=== PATIENT | male | born 1945 | race Caucasian/White ===

== ENCOUNTER 2017-02-21 02:00 | Inpatient (IN) | payer OTHER, MEDICARE ==
[~2017-02-21] VITALS: Ht 177.8 cm; Wt 68.0 kg
[~2017-02-21 02:00] MED LIST: ASPIRIN EC81 M1 PO; BENAZEPRIL HCL20 MG PO; CELEBREX200 M1 PO; ELIQUIS5 M1 PO; FLUOXETINE HCL20 M2 PO; FLUOXETINE HCL60 MG PO; GABAPENTIN300 M2 PO; MAGNESIUM OXID400 M1 PO; OXYCODONE HCL5 M1 PO; PRAVASTATIN SOD40 M2 PO; TAMSULOSIN HCL0.4 M1 PO; TRAZODONE HCL50 M1 PO; ZOFRAN ODT4 M1 SL
--- NOTE | 2017-02-21 12:16 | RADIOLOGY REPORT ---
EXAMINATION: XR LUMBAR SPINE CLINICAL INFORMATION: 71-year-old male for L4 bilaterally, L3 hemilaminectomy. COMPARISON: 12/15/2015. TECHNIQUE: Crosstable single lateral radiograph of the lumbosacral spine. FINDINGS: There are 3 radiopaque markers identified, though one in the middle is projecting at the level of L4-L5 disc space while the superior one is projecting at the level of just above the spinous process of L4 and the inferior one is projecting at the level of L5 spinous process. IMPRESSION: Crosstable single lateral radiograph showing radiopaque markers as described above.
--- NOTE | 2017-02-21 13:54 | Admission Core Measures ---
Admission Meds I reviewed the following Meds: Current Medications Sig/Moriah Start time Last Medication Dose Stop Time Status Admin Cefazolin Sodium 1,000 MG ONCE 02/21 0000 NR (Kefzol-Ancef Inj) 02/21 2359 Fluoxetine HCl 60 MG DAILY 02/22 1000 AC (Prozac) Gabapentin 300 MG AT BEDTIME 02/21 2200 AC (Neurontin) Lisinopril 20 MG DAILY 02/22 1000 AC (Prinivil) Magnesium Oxide 400 MG BID 02/21 2200 AC (Mag-Ox) Pravastatin Sodium 40 MG 1700 02/21 1700 AC (Pravachol) Tamsulosin HCl 0.4 MG DAILY 02/22 1000 AC (Flomax) Trazodone HCl 50 MG QPM 02/210 UNVr (Desyrel) Acute Coronary Syndrome Inclusion Criteria ACS Diagnosis No Inpatient Core Measures LDL Reminder: If No, please order W/I first 24hr of stay Congestive Heart Failure Inclusion Criteria CHF Diagnosis No Cerebrovascular accident Inclusion Criteria CVA/TIA Diagnosis No Inpatient Core Measures Bedside Swallow Eval Reminder: If BSE failed, place ST order Antithrombotic Reminder: Order Antithrombotic Medication by end of day 2 Antithrombotic Reminder: Document Reason Antithrombotic Not ordered by end of day 2 AFIB/Flutter Reminder: If Present, add to problem list AFIB/Flutter Reminder: Order Anticoag Medication for pts with AFIB/Flutter Atherosclerosis Reminder: If Present, add to problem list LDL Reminder: If No, please order W/I first 24hr of stay PT Order Reminder: If No, please order Venous thromboembolism Inpatient Core Measures VTE Risk Factors: Age > 40, Surgery No [facility] VTE prophylaxis d/t No contraindications No VTE Pharm Prophylaxis d/t Surgical contraindication Inclusion Criteria - Per Current guidelines, there needs to be overlap - treatment for the first 5 days of Warfarin therapy. - Parenteral Anticoagulation (IV or SC) needs to be - given along with Warfarin therapy. VTE Diagnosis No VTE Type NONE VTE Confirmed by (Test) NONE Problem List As ranked by this Provider includes Assessment & Plan 1. Spinal stenosis, lumbar region, with neurogenic claudication HOME MEDS Home Med List Aspirin (Ecotrin*) 81 MG TABLET. 1 TAB PO DAILY HEART HEALTH (Reported) Benazepril HCl 20 MG TABLET 1 TAB PO DAILY HIGH BLOOD PRESSURE (Reported) Fluoxetine HCl 60 MG TABLET 1 TAB PO DAILY MENTAL HEALTH (Reported) Gabapentin 300 MG CAPSULE 1 CAP PO NIGHTLY PAIN (Reported) Magnesium Oxide 400 MG TABLET 1 TAB PO BID LOW MAGNESIUM Oxycodone HCl 5 MG TABLET 1 TAB PO 4XDP PAIN (Reported) Pravastatin Sodium 40 MG TABLET 1 TAB PO DAILY HIGH CHOLESTROL (Reported) Tamsulosin HCl 0.4 MG CAP.ER.24H 1 CAP PO DAILY BPH (Reported) Trazodone HCl 50 MG TABLET 1 TAB PO QPM Mental Health (Reported)
--- NOTE | 2017-02-21 15:19 | RADIOLOGY REPORT ---
EXAMINATION: XR LUMBAR SPINE CLINICAL INFORMATION: L4 lumbar, bilateral, L3 hemilaminectomy. Bilateral L3-L4, L4-L5 posterior fusion. COMPARISON: None TECHNIQUE: Single crosstable lateral radiograph of the lumbosacral spine was obtained. FINDINGS: There is a radiopaque marker seen projecting at the level of the spinous process of L5 and L3 vertebral body. Multilevel degenerative spondylosis-related changes are noted in the spine. IMPRESSION: Radiopaque marker seen projecting at the level of the spinous process of L3 and L5 vertebral bodies.
[2017-02-21 16:30] VITALS: BP 148/80
[2017-02-21 18:30] VITALS: BP 150/80
[2017-02-21 20:36] VITALS: BP 118/71
--- NOTE | 2017-02-21 20:51 | PN- Orthopedic ---
Subjective Subjective: POSTOP CHECK s/p PLIF L3/4, L4/5 some back pain, denies leg pain, no n/v/cp/sob, chelsey solid diet, +uo via scherer Objective Vital Signs and I&Os Vital Signs Date Time Temp Pulse Resp B/P B/P Pulse O2 O2 Flow FiO2 Mean Ox Delivery Rate 02/22 2036 98.2 63 20 118/71 98 Room Air 02/21 1830 97.6 62 20 150/80 99 Room Air 02/21 1630 97.5 52 20 148/80 100 Nasal 2.0L Cannula 02/21 1630 100 Nasal 2.0L Cannula JP1 out: 100 JP2 out: 87 both serosang, tubing stripped/patent Physical Exam: GEN: NAD CARD: s1s2 RRR PULM: CTAB ABD: soft nt nd, ostomy fxning BACK/INCISION/EXT: dressing c/d/i, ttp at incision, no eccymosis/erythema noted, jpx2 serosang drainage in bulb, calves soft nt bl, +dorsi/plantar flexion bl, gross sensate intact/equal bl, +DP/PT pulses bl Assessment/Plan Assessment/Plan POD0 s/p PLIF L3/4, 5/6, postop pain, otherwise stable. PLAN: PRN pain meds ATC iv tylenol cont gluten free diet am labs oob as tolerated ?dvt ppx Core Measures/Miscellaneous Venous Thromboembolism VTE Risk Factors: Age > 40, Surgery VTE Contraindications: No Contraindications VTE Diagnosis: No VTE Type: NONE VTE Confirmed by (Test): NONE Beta Yasmeen Is Beta Yasmeen a Home Med? No Antibiotics Is Patient on Antibiotics? Yes
[2017-02-21 22:34] VITALS: BP 111/70
[2017-02-22 02:30] VITALS: BP 114/66
[2017-02-22 07:56] VITALS: BP 120/70
--- NOTE | 2017-02-22 08:14 | PN- Orthopedic ---
Subjective Subjective: POD#1 S/P PLIF SITTING UP IN BED EATING BREAKFAST NO MAJOR EVENTS OVERNIGHT DENIES CP, SOB, NO N+V WITH DIET Objective Vital Signs and I&Os Vital Signs Date Time Temp Pulse Resp B/P B/P Pulse O2 O2 Flow FiO2 Mean Ox Delivery Rate 02/22 0756 98.1 61 20 120/70 99 Room Air 02/22 0230 98.1 63 20 114/66 98 Room Air 02/21 2234 98.3 63 20 111/70 98 Room Air 02/21 2036 98.2 63 20 118/71 98 Room Air 02/21 1830 97.6 62 20 150/80 99 Room Air 02/21 1630 97.5 52 20 148/80 100 Nasal 2.0L Cannula 02/21 1630 100 Nasal 2.0L Cannula Intake & Output 02/22 1600 02/22 0800 02/22 0000 02/21 1600 02/21 0800 02/21 0000 Intake Total 550 Output Total 2100 1587 Balance -2100 -1037 Intake, Oral 550 Output, 287 Drainage Output, Urine 2100 1300 Patient 150 lb Weight Physical Exam: CV: RRR LUNGS: CLEAR ABD: SOFT, +BS EXT: DISTAL CMS GROSSLY INTACT DRSG DRY BREANNE'S: SANGUINOUS OUTPUT RUSSELL: CLEAR URINE Assessment/Plan Assessment/Plan ORTHO STABLE PLAN OOB TODAY D/C RUSSELL WEAN IV NARC'S CONT IV ABX'S UNTIL DRAINS PULLED HOME D/C PLAN Core Measures/Miscellaneous Venous Thromboembolism VTE Risk Factors: Age > 40, Surgery VTE Contraindications: No Contraindications VTE Diagnosis: No VTE Type: NONE VTE Confirmed by (Test): NONE Beta Yasmeen Is Beta Yasmeen a Home Med? No Antibiotics Is Patient on Antibiotics? Yes
[2017-02-22 08:49] LABS: ABSOLUTE BASOPHIL COUNT 0 /CUMM (0.0-0.2); ABSOLUTE EOSINOPHIL COUNT 0 /CUMM (0.0-0.7); ABSOLUTE GRANULOCYTE CT 8.8 /CUMM (1.4-6.5); ABSOLUTE LYMPH COUNT 1.2 /CUMM (1.2-3.4); ABSOLUTE MONOCYTE COUNT 1.1 /CUMM (0.10-0.60); BASOPHIL % 0.3 % (0.0-2.0); EOSINOPHIL % 0.3 % (0-5); GRANULOCYTE % 78.8 % (42.2-75.2); HEMATOCRIT 32.8 % (42-52); MEAN CORPUSCULAR HGB 30.6 PG (27.0-31.0); MEAN CORPUSCULAR HGB CONC 33.7 G/DL (33.0-37.0); MEAN PLATELET VOLUME 8.1 FL (7.4-10.4); PLATELET COUNT 185 /CUMM (130-400); RBC DISTRIBUTION WIDTH 13.9 % (11.5-14.5); RED BLOOD CELL CT 3.61 /CUMM (4.70-6.10); WHITE BLOOD CELL COUNT 11.2 /CUMM (4.8-10.8)
[2017-02-22 10:29] VITALS: BP 120/85
[2017-02-22 14:34] VITALS: BP 120/68
--- NOTE | 2017-02-22 16:31 | Operative Report ---
Operative/Inv Procedure Report Surgery Date: 02/21/17 Name of Procedure: 1) L4 Decompressive Laminectomy, L4-L5 Bilateral Partial Medial Facetectomies And Medial Exit Zone Expanding Foraminotomies (Blechner/Ron, PIG FURNACE OPERATOR-BC) 2) L3 Decompressive Laminectomy, L3-L4 Bilateral Partial Medial Facetectomies And Medial Exit Zone Expanding Foraminotomies (Blechner/Ron, PIG FURNACE OPERATOR-BC) 3) L4-L5 Posterobilateral Intertransverse Process Uninstrumented Fusion ( Blechner/Ron, PIG FURNACE OPERATOR-BC) 4) L3-L4 Posterobilateral Intertransverse Process Uninstrumented Fusion ( Blechner/Ron, PIG FURNACE OPERATOR-BC) 5) Preparation And Implantation Of L3-L5 Posterobilateral Intertransverse Process Nonstructural Allograft Subtitute Osteopromotive Material (Rafianer) 6) [place], Preparation And Implantation Of L3-L5 Posterobilateral Intertransverse Process Morselized Local Autograft (Nini) Pre-Operative Diagnosis: Primary Surgically Treated Diagnoses: 1) L4-L5 And L3-L4 Lumbar Intervertebral Disc Disorder With Left Lumbar Radiculopathy 2) L4-L5 And L3-L4 Lumbar Spondylosis With Left Lumbar Radiculopathy 3) L4-L5 And L3-L4 Multizone Lumbar Spinal Stenosis 4) Left Lower Extremity Distal (Extensor Hallucis Longus And Anterior Tibialis) Subjective And Objective Motor Neurological Deficit 5) Left Lower Extremity Mild Foot Drop 6) Left Lower Extremity Mild Toe Drop 7) L5 Left Lower Extremity Lumbar Distribution Positional And Claudicating Radiculopathy (Pain, Motor And Sensory Deficit, Dyscoordination And Ambulatory Dysfunction) 8) Right Distal Lower Extremity L5 And S1 Distribution Hypoesthetic Disturbance Of Skin Sensation 9) L4-L5 And L3-L4 Displacement Of Degenerative Lumbar Intervertebral Discs 10) L4-L5 And L3-L4 Degeneration Of Lumbar Intervertebral Discs 11) L4-L5 And L3-L4 Lumbar Spondylosis 12) L4-L5 Subtle Degenerative Low Grade I Lumbar Spondylolisthesis 13) L3-L4 Degenerative Low Grade I Lumbar Retrolisthesis 14) L4-L5 And L3-L4 Spinal Segmental Instability 15) 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) Post-Operative Diagnosis: Same as preoperative diagnosis list with the addition of: Intraoperative And Postoperative Diagnoses Relevant To Postoperative Care: 1) L3-L4 And L4-L5 Potential Increased Postoperative (Post-Decompression And Pre-Arthrodesis) Microinstability Requiring Acute Postoperative Activity Limitation And Circumferential Lumbar Compression Orthosis Use For Optimized Symptom Control, Stabilization, Fusion, Postoperative Function And Overall Outcome 2) Expected Acute Postoperative Lumbar Region Pain Requiring Postoperative Intravenous Narcotic Analgesic Pain Medication And Inpatient Nursing Observation Following Standard And Uncomplicated But Extensive Multilevel Lumbar Decompression And Uninstrumented Fusion 3) Expected Acute Postoperative Lumbar Region Muscular Spasm Requiring Postoperative Muscle Relaxant Medication And Inpatient Nursing Observation Following Standard And Uncomplicated But Extensive Multilevel Lumbar Decompression And Uninstrumented Fusion 4) L3 And L4 Acute Lumbar Posterior And Posterobilateral Osseous Decompression Postprocedural Status 5) L3-L4 And L4-L5 Lumbar Spine Early Postprocedural Uninstrumented Arthrodesis Status 6) Physiologically Limited Bone Healing Potential (Due To Multiple Medical Conditions And Medications) Relative To Extent Of Multilevel Arthrodesis Performed Indicating Use Of An External Pulsed Electromagnetic Field Stimulation Device To Optimize Osseous Fusion Formation Estimated Blood Loss: 800 cc, 600 cc cell saver return Surgeon/Vehicle Service Agent: SLIME TERRAZAS MD - Primary Admitting Orthopaedic Spine Surgeon Surgical Providers: Slime Terrazas M.D. - Orthopaedic Spine Surgeon Cesia Augustin PA-C - Laboratory Manager Anesthesia: general endotracheal tube Monitors: Standard general anesthesia and other perioperative monitoring was performed per anesthesia protocols. Standard intraoperative EMG and SSEP electrophysiological monitoring (NeuroAlert ) Refer to anesthesia and intraoperative electrophysiological monitoring records for details. IV Fluids: Standard anesthesia fluid management was performed without requirement for additional or emergent fluid resuscitation. Refer to anesthesia and cell saver records for details. Implants: Implants Placed: None Graft Placed: Morselized Locally Harvested Autograft Autograft Locally Harvested From: L3 And L4 Spinous Process Resections And Laminectomies L3-L4 And L4-L5 Partial Medial Facetectomies Allograft Substitute Osteopromotive Material Haptik Holliday DBF (6 cc) (Autograft And Allograft Substitute Graft Distributed Equally Bilaterally And Evenly From L3 To L5) Urine Output: Refer to anesthesia records for details. Drains: Large bore subfascial BREANNE drains x 2 to medium bulb reservoir suction ( fenestrated portions of drain tubes placed in each posterolateral intertransverse space (lateral gutter) with solid (unfenestrated) portion passed through deep muscle, fascia, subcutaneous tissue, and skin of bilateral caudal aspect of surgical site torres without suture fixation) Specimens: None Complications: None Condition: Initial Preoperative Condition: The patients condition was stable to the operating room without vital sign, hemodynamic, cardiopulmonary or other organ system abnormality and without new neurovascular or musculoskeletal functional deficit compared to stable baseline of preoperative distal bilateral lower extremity sensory and mild motor deficit noted on orthopaedic spine surgical office as well as admission history and physical evaluations. The patient was cleared preoperatively as optimized for surgery by his primary care physician and all requested consulting specialty services prior to admission. There were no subjective reports or objective findings to suggest any significant adverse changes in the patient's spine, neuromuscular or complex medical conditions between the clearance admission history & physical evaluations and the immediate preoperative assessment. Intraoperative Condition: The patient was stable throughout the procedure without vital sign, cardiopulmonary or other monitoring changes, lability, instability or abnormality. The patient's initial baseline neurophysiological monitoring signals (recorded shortly after general anesthetic induction and prior to incision) were within normal range of amplitude and latency with no electrophysiologic manifestations of compression or suggestion of occult deficit. By the end of the procedure it became evident that, although these initial baseline recording were within the normal range, there was some baseline preoperative electrophysiologic suppression since the signals improved somewhat shortly following decompression. This was consistent with intraoperative findings of hyperactive neuromotor response associated with even gentle neural contact and retraction during decompression which decreased significantly once the neural elements were fully decompressed. Neural element manipulation and associated neuromotor firing was minimized as much as possible during the procedure and was not associated with even temporary reported electrophysiological changes at any time during the procedure. Final Postoperative Condition: The patient was extubated and stable to the recovery room with no new deficit or adverse change compared to stable baseline preoperative neurological and musculoskeletal assessment (with moderate sensory and motor deficits noted above ) based on limited evaluation during initial recovery from anesthesia. The patient demonstrated grossly normal spontaneous motion initially as well as later normal motion and function to command in both upper and distal lower extremities once fully awake upon early recovery from anesthesia. On final postoperative neurological assessment the patient reported subjective partial improvement compared to his preoperative sensory and motor deficits and this improvement was confirmed on objective sensory evaluation and manual motor testing with symmetrical and incomplete but noticeable return toward normal function even at this early timepoint. There was no swelling, erythema, tenderness, pain with either active or passive motion or any other symptom or finding to suggest a concerning process involving the superficial or deep cutaneous, subcutaneous, muscular, vascular or other tissues related to the immobilization or localized pressure of prolonged prone positioning required for surgery. 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 who presents today for L4 decompressive laminectomy, bilateral L3 decompressive inferior hemilaminotomies, bilateral L3-L4 and L4-L5 partial medial facetectomies and foraminotomies for central canal, lateral recess and foraminal decompression followed by L3-L5 posterobilateral uninstrumented fusion to address bilaterally symmetrical lower extremity radiating pain, distal numbness and fatigue weakness with claudicating ambulatory worsening of symptoms , mild gait abnormality and additional functional deficits secondary to severe L4-L5 and moderate to severe L3-L4 spinal canal, lateral recess and right greater than left foraminal stenosis causing significant traversing and exiting neural element compression. This condition has been progressively worsening over several years consistent with the typical natural history of osseous spinal stenosis, but has become functionally limiting over the last 6 months without specific or significant inciting or exacerbating event, injury or change in activity. He denies any history of severe, incapacitating or even significant back pain and the moderate history that he does report of activity related back pain is consistent with axial claudication from his stenosis likely combined with a component from the additional findings of lower lumbar degenerative changes on radiologic studies correlating with age. His symptoms and condition have steadily progressed and have now reached an unacceptable level associated with significant activity and functional limitation despite good compliance with a conservative management program to the best of his ability and tolerance. His clinical findings and progression are consistent with the radiologic findings of severe stenosis causing significant neural compression which is unlikely to improve with further conservative care. Injections are unlikely to give him long-term imporvement at this point and the associated risk outweighs the likely minimal and temporary benefit. He has therefore, very reasonably, chosen to proceed with surgical decompression. The multilevel mild instability ( spondylolisthesis at L4-L5 and retrolisthesis at L3-L4) significantly increases his risk for recurrence and so fusion has been recommended. The lack of gross instability makes him a reasonable candidate for uninstrumented fusion which was the option ultimately selected by the patient. The patient's preoperative lumbar spine radiologic workup (including static and dynamic radiographs as well as MRI scan) showed the above noted severe two level. multizone stenosis secondary to spondylosis and hypertrophic facet arthropathy consistent with the patient's current presenting clinical condition including symptoms (claudicating radiating pain and sensory loss), physical examination findings (distal lower extremity subtle motor fatigue weakness) as well as functional deficits mostly involving severe ambulatory distance limitation. The radiologic findings are also consistent with the persistence of his condition and his failure to improve with conservative care. His preoperative laboratory studies were unremarkable. The patient has sufficiently severe and progressively worsening clinical condition (symptoms and exam findings listed above) related to this condition, has failed a comprehensive conservative management program despite excellent compliance, has close correlation between clinical presentation and preoperative studies, is medically optimized for surgical intervention, understands and accepts the limitations, uncertainties and risk of surgery, appears to have appropriate goals for surgical outcome, and is more likely to achieve those goals with the planned surgical procedure than with other options for treatment thus making him a reasonable candidate for surgical intervention. The patient has a significant remote past medical history of low rectal adenocarcinoma resected in 1997. His resection was not ammenable to reanastamosis. He has done well with a permanent colostomy since surgery without complications or evidence of recurrence. He was treated with radiation but his portal was mostly low pelvic and there is no suggestion of significant exposure or radiation scarring to the intended lower lumbar operative area although no documentation of exact exposure landmarks or dose is available for review. It is certainly possible that some (possibly significant) component of his neurological symptomatology (particularly sensory deficit) is neuropathic related to sacral radiation exposure and the patient understands that any such component is unlikely to respond even to optimal surgical decompression and could potentially worsen. 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 He has a significant primary past surgical history of low large bowel resection and permanent colostomy (1997) which is detailed above. He also has a positive secondary past surgical history of bilateral cataract surgery (2010) and right total hip arthroplasty (09/09/2011). He denies any complications, adverse events or outcomes associated with any of the above procedures or associated anesthesia care and in fact recovered fully from those surgeries without functional limitations. His current and active medications include Benazepril, Fluoxetine, Trazadone, Pravastatin, Ranitidine, Omeprazole, Ondansetron, Tamsulosin and Hydrocortisone Ear Drops for his above listed medical conditions. He takes Celebrex, Gabapentin and Oxycodone primarily for his spinal condition. He takes Eliquis for atrial fibrillation. This medication has been held since 5 days prior to surgery. He reports no adverse effects from any of these medications or supplements and reports no recent change in product or dose. He denies any history of anaphylactic, anaphylactoid, allergic or non-allergic reactions or sensitivities to medications, foods or skin contact environmental allergens. He is a non-smoker and denies significant alcohol intake or other social risk factors. The above clinical information was reviewed throughout the hospital admission and preoperative confirmation process but did not alter surgical recommendations, treatment plans or perioperative management in this case. Treatment options were discussed in detail directly with the patient. After careful and appropriate consideration he elected to proceed with the planned operative procedure of L4 decompressive laminectomy, bilateral L3 decompressive inferior hemilaminotomies, bilateral L3-L4 and L4-L5 partial medial facetectomies and foraminotomies for central canal, lateral recess and foraminal decompression followed by L3-L5 posterobilateral uninstrumented fusion. He also consented to any additional indicated procedure based on intraoperative findings. Arrangements for hospital admission, surgery and perioperative care were made through Dr. Terrazas's office. In addition to the general risks of all surgical procedures (bleeding, infection, anesthesia and other general risks), specific risks of the planned procedure were reviewed with the patient including but not limited to tissue injury or exacerbation of prior injury (spinal cord, nerve root, peripheral nerve, meningeal, blood vessel, bone, disk, joint, muscle, tendon, ligament or other tissue injury), meningeal tear, spinal fluid leak, fracture of spinal elements, worsening of spinal alignment, abnormal (hypertrophic, heterotopic or ectopic) bone or scar formation, new or persistent-exacerbated symptoms (pain, dysesthesias, paresthesias, headaches), development of new or worsening of preexisting medical conditions or complications (arthritis, blood clots, cardiac events, stroke, acute organ failure of any organ, other medical conditions potentially worsened by trauma, surgery, anesthesia or immobility), inability to complete the procedure as planned, and need for reoperation at the current or a future related site (including possible surgeries for conditions not addressed or only partially addressed by this procedure such as degenerative processes previously documented at the current and adjacent lumbar levels). Potential for partial or complete, global or regional loss of motor, sensory, coordination, ambulatory, balance, bladder, bowel or sexual function was reviewed. Remaining potential complications were reviewed in inclusive risk categories ranging through all severity levels from temporary changes to catastrophic outcomes such as complete paralysis, organ failure, disfigurement or . The patient understood and accepted that his risk was likely to be considerably above average even for this already complex and high risk procedure compared to his age, clincal and function matched cohort due to his duration, severity and recent progression of pre-operative symptoms, noticeable and progressive pre- operative subjective and objective bilateral lower extremity motor, sensory and ambulatory functional deficits, extent and multiple levels of degenerative disease and spinal neural element compression on MRI, previous radiation therapy in the adjacent sacral and palvic regions, mild multilevel instability changes, and history of multiple systemic medical conditions (including atrial fibrillation requiring anticoagulant therapy) possibly affecting perioperative care and outcome. On the other hand, his thin body habitus and low demand activity level likely mitigates some of these increased risks. He also understood and accepted that the purpose of surgery is to minimize the chance for further progression of symptoms and neurological deficit and that his current preoperative deficits may be permanent. Signed operative consent was obtained directly from the patient with good understanding of all reasonable alternatives, indications, goals, expectations, limitations, risks and benefits of the planned procedure. He consented to all phases of the procedure being performed by Dr. Terrazas with the assistance of all designated hospital and outpatient practice team members. He was cleared preoperatively as optimized for surgery by his primary care physician (Andriy Nails M.D.), all requested consulting medical subspecialists and primary surgeon office evaluation prior to admission. Preoperative arrangements were made to follow all clearance evaluation recommendations. In the preoperative evaluation area, the patient confirmed his oral intake status as NPO since midnight prior to surgery. Operative/Procedure Note Note: Preoperative Holding Area Assessment/Preparation: The patient was evaluated in the preoperative holding area prior to surgery and no clinical changes or contraindications to surgical intervention were documented compared to the preoperative office and clearance evaluations. His bilateral foot and ankle sensory and motor deficits were unchanged from clearance examinations including moderate posterior leg and plantar foot numbness and subtle extensor hallucis longus and anterior tibialis weakness ( initial full strength with rapid early fatigue). As in the office, the patient was otherwise grossly neurovascularly intact in both lower extremities to standard testing. There were no multiple, bilateral or sacral root distribution sensory, motor, reflex, coordination or ambulatory changes to suggest acute increase in neural element compression or impending cauda equina syndrome that might be associated with increased neurological intraoperative risk based on preoperative assessment. The surgical plan and site were confirmed with the patient and preoperative paperwork was finalized. The region of the intended surgical site was cleansed, prepped and marked per protocol. The primary surgeon, anesthesia care team members, and operating room staff confirmed the patient identity, surgical procedure, and operative site as well as other clinical details with the patient in an initial documented preoperative confirmation (awake time out) prior to the administration of sedation or anesthesia. Surgical Procedure: The procedure was performed by Dr. Terrazas who was present and served as the primary surgeon for all critical intraoperative and perioperative decisions and interventions. The assistance of a specialty trained document control assistant was critical for safe completion of all phases of the procedure, particularly for maintenance of clear visualization in the operative field and for protected neural element retraction. FARIDA Tuttle assisted in this capacity throughout each critical phase of the procedure. Set-Up/Positioning/Exposure - The patient was brought to the operating room in stable condition and underwent uncomplicated induction of general anesthesia, intubation, and placement of all appropriate monitors, lines and catheters without difficulty. Administration of 2 grams of IV Ancef based on patient body mass was given for surgical prophylaxis and was completed at least 30 and less than 60 minutes prior to making an incision. Corticosteroid (Decadron 8 mg IV) was recommended by anesthesia for airway management and nausea prophylaxis, approved by the surgeon , and administered shortly after intubation. The patient was positioned prone on the [facility] operating table in standard fashion for a lower lumbar decompression and uninstrumented posterobilateral fusion taking care to protect and stabilize the spine during transfer, avoid positions of nerve stretch, pad all pressure points, and support the head without any pressure on the eyes using a foam head rest and head-holding frame. The iliac crest pad on the left could not be placed in its normal position because of the patient's left lower quadrant stoma and ostomy bag. In this case, both iliac crest supports were placed lower than usual with the upper margin of the support at the iliac crest and the middle of the support at the hip joint level. Additional foam padding was added to optimize support and pressure distribution in this region. Given his small frame this adjustment still provided optimal patient positioning and support without excessive pressure concentration. The proximal thigh supports were still placed one hand breath below the iliac crest supports in optimal position. All other setup was unchanged and standard for this type of procedure. This adjusted positioning allowed the patient's stoma to be protected without any pressure and allowed his ostomy bag to hang free without pressure or obstruction in the prone position. Electrophysiological monitoring electrodes were applied per standard monitoring protocol. Monitoring was felt to be indicated in this procedure because of the significant multilevel stenosis , bilateral and claudicating symptoms as well as the bilateral physical examination findings of both motor and sensory partial deficits. The arms were abducted less than 90 degrees at the shoulders, flexed less than 90 degrees at the elbows and supported on well-padded arm-boards with additional foam padding from the axillary regions to the hands with all pressure points either fully padded or supported without any contact at all between pads. The primary surgeon, anesthesia care team, and operating room staff again documented the patient identity, surgical procedure, and operative site as well as other clinical details in a final documented confirmation (final time out) prior to beginning the procedure. Loupe magnification was used throughout the appropriate portions of the procedure. After sterile prep and drape using standard technique with DuraPrep, an incision was mapped, infiltrated with 0.5% Marcaine local anesthetic with epinephrine, and made extending longitudinally from the superior tip of the L3 spinous process to the superior tip of the L5 spinous process overlying the intended L3 and L4 operative laminar levels. Hemostasis was achieved using Bovie and Bipolar electrocautery beginning with the incision and continuing throughout the procedure with settings appropriate to each progressive level. The lumbosacral fascia was divided over the left side of the L4 and superior L5 spinous process tips as well as the bridging interspinous ligament segment using the Bovie electrocautery which was also used to maintain hemostasis throughout the exposure. Care was taken to preserve the interspinous ligament until the dissected level had been confirmed to be the intended operative level by radiographic localization. The dissection was then carried down the left side of the middle and inferior L4 spinous process, the interspinous space and the superior margin of the L5 spinous process and then extended laterally to expose the corresponding laminae and interlaminar space at that level out to the edge of the left L4-L5 facet capsule which was preserved. The dissected interlaminar space was marked with a curved curette placed under the inferior leading edge of the superior lamina and confirmed to be at the intended interspace on cross- table lateral radiograph. Intraoperative findings of multilevel lower lumbar degenerative disk disease and facet arthropathy correlated well with the preoperative radiographic studies and no obvious interval change or additional abnormality was noted. The alignment of the spine on this intraoperative localization radiograph was noted to be normal and unchanged from preoperative office studies. No gross spondylolisthesis was appreciated on this image and the subtle instability noted on preoperative studies appeared to be reduced on this intraoperative view taken in the lordotic supported prone position on the Zaheer table. Once the appropriate levels were fluoroscopically confirmed, dissection was continued bilaterally to fully expose both intended interlaminar levels (L3-L4 and L4-L5) out to the capsules of the facet joints which were initially preserved. Bovie and Bipolar electrocautery as well as a Cole elevator were then used to dissect over the facet joints, down the lateral margins of the facets (taking care to maintain hemostasis of the faceteal vessels where necessary) and over the dorsal surfaces of the L3, L4 and L5 transverse processes and L3-L4 and L4-L5 intertransverse membranes out to the lateral level of the transverse process tips. Spinal needles were placed at the base of the right L3 and L5 transverse processes as localization markers and a second cross- table lateral radiograph was performed which confirmed these markers to be at the intended fusion levels. Once this dissection and confirmation of operative level was completed, the spinal needles were removed and the lateral gutters were thoroughly irrigated and packed bilaterally with counted moist sponges. Attention was then turned to the midline decompression. Hemilaminotomy/Discectomy/Decompression - The lateral margin of the pars interarticularis of L3 and L4 were identified so as to insure that the laminectomy did not approach, thin or destabilize this region. As per the initial surgical plan, a complete vertical midline interpedicular laminectomy was first performed at L4 followed by a bilateral inferior hemilaminotomy at L3. This involved resection of the L4 spinous process and attached L3-L4 and L4-L5 interspinous ligaments followed by thinning the entire height of the midline L4 and the inferior margin of the bilateral L3 laminae in a tapered fashion using the Midas Berlin drill taking care to avoid excessive thinning of the pars interarticularis region. This was followed by piecemeal resection of the deep laminar cortex using Kerrison rongeurs after dissecting under the leading edge with a curved curette to free any underlying adhesions. Where possible the ligamentum flavum was left in place during the osseous decompression as a protective layer and then later removed to complete the lateral recess decompression where the ligament was a significant component of the compression. The more limited L3 laminar resection involving bilateral inferior hemilaminotomies initially preserved the L3 spinous process and L2-L3 interspinous ligament. The severe stenosis in all canal zones was associated with hyperemia of the thecal sac and nerve root meninges, inflammation and irritation particularly at the L4-L5 level consistent with the severity and chronicity of clinical and radiologic findings as well as poor response to conservative measures of the patient's claudicating symptoms and deficits confirming the indications for surgery. All of these findings also suggested that improvement would have been unlikely with further conservative management and without surgical intervention. Once the planned limited decompression had been completed at L3-L4, it became evident that there was still residual canal and recess stenosis extending to the superior "keel" of the lamina and it was felt that complete midline laminectomy of this level would better optimize neural decompression without significantly compromising stability. Therefore the incision and superficial soft tissue dissection were extended superiorly to the inferior tip of the L2 spinous process followed by resection of the L3 spinous process, L2-L3 interspinous ligament and central L3 lamina similar in extent to that described above for the L4 level. The L3 and L4 midline laminectomies were sufficient to decompress the central canal and provide access to the bilateral recesses which required considerable additional decompression consistent with the findings documented on preoperative MRI. Bilateral L3-L4 and L4-L5 partial medial facetectomies along with resection of the ligamentum flavum were required to achieve bilateral recess decompression out laterally to the level of the medial margin of the facet superficially and to the level of the medial wall of the pedicles within the canal taking care not to excessively thin the pars interarticularis, violate the posterior facet capsule or destabilize the facet complex at any level. Bilateral L3-L4 and L4-L5 foraminotomies were performed to adequately decompress the nerve root exit zones at the stenotic levels. All resected spinous process, laminar and medial facetectomy bone was cleaned of soft tissue, morselized and prepared for later reimplantation as local autograft for posterobilateral intertransverse arthrodesis. No significant adherent, tethering or compressive epidural fibrosis was identified and so no epidural or perineural dissection, neurolysis or mobilization of the neural elements was required. There was no significant disk herniation suggested on preoperative MRI and no intraoperative evidence of neural element elevation or other finding to suggest a residual unidirectional component of compression from the disk spaces or ventral epidural space persistent following dorsal and dorsolateral decompression. Consequently, no ventral dissection was required or performed in this case. Moderate irritability and hyperactive neural activity associated with muscle firing was noted from even the very gentle mechanical stimulus required for decompression. These hyperactive responses were not associated with any reported intraoperative electrophysiological monitoring changes and decreased considerably once the decompression was completed. Hemostasis of osseous and epidural bleeding was achieved using Thrombin soaked Gelfoam and paddies gently applied and removed by irrigation with all bleeding controlled. Bleeding from the laminectomy edges was controlled with small amounts of bone wax applied using the back of a [place] with any residua removed. Final complete central and foraminal decompression was confirmed by gentle passage of a Price dental instrument out each foramen without resistance. Attention was then turned to the fusion portion of the procedure. Arthrodesis - The posterolateral fusion was performed using standard technique. With the retractors optimized for posterolateral gutter access, final preparation for arthrodesis was performed with any residual soft tissue resected from the posterolateral elements down to the level of the intertransverse ligament which was preserved. The debrided posterolateral elements and spaces were again thoroughly irrigated using approximately 1 liter of Bacitracin irrigation via bulb lavage technique prior to decortication and grafting. The osseous posterobilateral structures were decorticated down to bleeding cancellous bone using the Midas Berlin drill and 5 mm cutting heath including the L3, L4 and L5 transverse processes, the lateral facet torres and the pars interarticularis of each vertebral level and intervertebral motion segment. The remaining bilateral facet capsules of each fused motion segment (L3-L4 and L4-L5) were removed and the facet joints denuded by superficially drilling into the joint space with a Midas Berlin drill to promote facet joint fusion while avoiding deep joint disruption so as to minimize joint destabilization. The intertransverse space was then gently packed on both sides with a mixture of cleaned and morselized autograft and one container of Haptik Holliday DBF (6 cc reconstituted with several milliliters of blood per recommended protocol) in order from deep-medial (closely approximating the decorticated structures) to superficial-lateral. All graft material was divided equally between the two sides and distributed equally on each side across the two intended arthrodesis levels from L3 to L5. Care was taken to compress graft against the posterolateral decorticated structures for optimal ingrowth while avoiding any extension of graft deep (below the intertransverse membrane) or medial (close to the decompressed canal or foraminal openings) to the intended fusion bed so as to prevent any contact or impingement on the neural elements or other unintended structures. Following posterobilateral decortication and arthrodesis graft placement and prior to final closure all neural elements including each decompressed foraminal nerve root exit zone was confirmed to have unimpeded passage by palpation with a nerve hook and Price instrument. The decompression was felt to be optimal with no residual stenosis or impingement by graft material noted. The retractors were removed and the superficial soft tissues were checked with no evidence of pressure changes or need for debridement. Continuous electrophysiological monitoring throughout the procedure showed no adverse changes at any point during the decompression, instrumentation, or at any other time during the case. Although the initial recordings were within normal limits , intermediate percentage improvement in signal amplitude was reported following neural decompression suggesting that the initial readings may have in fact been decreased compared to this patient's physiologic and uncompressed baseline due to his central canal stenosis consistent with the severe preoperative radiologic findings. Closure/Recovery - The surgical site was thoroughly irrigated and hemostasis was carefully achieved prior to closure. A piece of Thrombinized Gelfoam was cut to match the size of the laminectomy defect and placed over the dorsal surface of the thecal sac and traversing nerve roots to minimize epidural fibrotic adhesions to the decompressed neural elements. Dual large bore subfascial BREANNE drains were placed with one on each side in the lateral intertransverse spaces and carried out through the inferior wall of each side of the surgical site using a trocar. Initial counts were correct prior to closure. The deep lumbar muscular layer was reapproximated using #0 Vicryl interrupted suture technique so as to minimize open subfascial space for hematoma collection. The fascial layer was reapproximated in a [id number] closure using #0 Vicryl interrupted, figure-of- eight suture technique. The deep suprafascial closure was performed with #2-0 Vicryl interrupted, simple suture technique. The superficial subcutaneous layer was closed with #3-0 undyed Vicryl inverted, interrupted, simple sutures. The skin was closed using cristin with the edges everted. A standard, sterile Xeroform dressing was placed, covered with folded fluff gauze 4x4s and ABD pads and held with Coverall with good surgical site and bilateral drain site coverage. All counts were correct prior to removing the drapes. The patient was turned into the supine position on the hospital bed using careful log-roll technique, avoiding torsional stress and stabilizing the lumbar region during transfer. He was then extubated in the operating room without difficulty. Recovery Room Assessment: The patient was transported to the recovery room in stable condition where gross neurological examination showed normal function with no deficits or worsening compared to his pre-operative assessments on initial recovery from anesthesia. In fact, the patient reported subjective improvement in both his left distal lower extremity sensory and motor function and this was confirmed by objective testing to be noticeably partially improved (by approximately 50%) compared to preoperative assessment. The patient will follow the usual postoperative protocol for lower lumbar laminectomy and posterobilateral osseous resection for multizone decompression of spinal stenosis followed by uninstrumented local autograft and allograft substitute osteopromotive material arthrodesis with some adjustments and accommodations made to the standard protocol because of the degree of stenosis, multilevel degenerative changes and multiple medical conditions. His postoperative care plan will include hospital admission, standard nursing care and monitoring protocols, early mobilization, oral medication pain control and home discharge planning starting on postoperative day #1 or #2 depending on symptom control and functional progression toward discharge criterion. He will be instructed to mobilize frequently but to avoid lumbar motion or prolonged unsupported upright sitting. Primarily because of his concomitant moderate degenerative disk disease and multilevel mild instability, he will use a compression brace during the initial phase of healing for stabilization and to optimize arthrodesis. Lower extremity (particularly gentle hip and knee) motion is encouraged to promote longitudinal nerve motion and minimize fibrous neural tethering during the fibrous consolidation and motion segment stabilization healing phase. Outpatient rehabilitation program will be arranged through the office to begin slowly but progressively at approximately 4 weeks after surgery assuming standard and uncomplicated postoperative course and following clearance at initial postoperative follow-up assessment. Given the multilevel uninstrumented nature of his lumbar autograft fusion procedure supplemented with allograft substitute osteopromotive material and his likely impaired osseous healing potential due to multiple medical conditions and previous radiation therapy to nearby areas, a spinal fusion osteogenesis stimulator is indicated and will be ordered, applied and followed through the office. Findings: 1) Severe L4-L5 and moderate L3-L4 central canal and bilateral recess stenosis with slightly lesser bilateral foraminal stenosis at each level was identified intraoperatively consistent with preoperative radiologic studies. Full laminectomy, bilateral partial medial facetectomy and bilateral foraminotomy was planned and perforrmed at L4 with complete multi-zone neural element decompression. At the L3 level the originally planned bilateral inferior hemilaminotomies were performed but did not fully release the stenosis at the upper aspect of that level and so a complete laminectomy and posterolateral osseous resection was performed (similar to the L4 level) again resulting in complete multi-zone neural element decompression. No suggestion of significant disk herniation or other ventral compression was appreciated and so no ventral disssection was required or performed. 2) Only minimal neurolysis, consistent with standard range of decompressive procedures, was required to safely retract and protect the neural elements during decompression. 3) Following dorsal and dorsobilateral osseous and ligamentous resection, full central canal, lateral recess and foraminal decompression was documented by intraoperative visual assessment and instrument palpation at the end of the procedure. 4) Although within normal range even during baseline assessment at the beginning of the procedure, a subtle but definitive improvement in EMG signals was noted intraoperatively shortly following decompression consistent with the clinical and radiologic preoperative findings and effects of severely compressive stenosis. 5) Partial return of distal lower extremity sensory and motor function was subjectively noted by the patient and objectively confirmed by physical examination in the recovery room on early postoperative evaluation. Discharge Disposition: PACU Additional Comments: Standard postoperative protocol for multilevel lumbar decompressive laminectomies and multizone neural element decompression with multilevel uninstrumented fusion will include: Continue perioperative antibiotic coverage (Ancef 2 grams IV every 8 hours) until one dose after both drains have been removed Removal of Fan catheter in AM following surgery or earlier if requested by patient. Empty drains and measure output every shift. Removal of BREANNE drains likely on POD #1 or POD #2 but ultimately dependent on output measurements and other clinical assessments. Due to the patient's ostomy, a custom brace will be required for lumbar stabilization and this will be arranged after discharge through the office. During inpatient recovery the patient will not require bracing but will be encouraged to minimize bending and lumbar motion. Once the brace is dispensed he will be instructed to use it most of the time when he is out of bed but may remove it to take breaks and for hygiene. Even when the brace is in place, but particularly when the brace is off, the patient is cautioned to minimize lumbar motion and prolonged unsupported upright sitting. This level of brace use and motion limitation will continue until his 6 week postoperative visit at which time future need for bracing will be assessed and he should be able to wean its use first for normal functions and then for more vigorous activities as he strengthens with a standardized outpatient physical rehabilitation therapy program. It is not necessary for him to use the brace constantly nor when he is sleeping although he may use it at night for comfort if he so chooses. The patient will be instructed on and follow standard protocols regarding lumbar surgical site care, showering and daily dressing changes following shower starting on postoperative day #2. Physical therapy will be consulted for evaluation on the afternoon of surgery or the first postoperative morning for education regarding extremity range of motion and strengthening exercises with the lumbar spine stabilized, mobilization from and to bed, chair and bathroom as well as stair climbing and descending as needed in preparation for home discharge and independent home function. The patient is encouraged to minimize lumbar motion, lifting, carrying, pushing, pulling and prolonged unsupported upright sitting (longer than for meals) particularly during the first 6 weeks postoperatively. Advance diet as tolerated back to preoperative baseline and without any required postoperative restrictions. Because of the extent of surgery, duration of anesthesia, requirement for narcotic pain medication and preoperative history of gastroenterological conditions, slow advancement of diet is suggested starting with liquid or soft mechanical diet and progressing over 24 to 48 hours as tolerated. Balanced diet is recommended to support optimal surgical site and osseous healing. If any significant adverse GI symptoms develop then the patient is instructed to reduce diet and, given preoperative history of multiple GI conditions, contact his primary care physician, radial drill operator for plastic and surgeon. The patient is at low perioperative thromboembolic risk from an orthopaedic spine care standpoint based on available literature and does not require any pharmacologic prophylactic treatment in this regard as long as he mobilizes early and frequently with lower extremity motion exercises and ambulation. Sequential compression devices will be used throughout the patient's hospitalization. Contact Dr. Terrazas in the unlikely event that the patient is unable to mobilize adequately (at least to the chair and bathroom) with physical therapy and/or nursing supervision by the first postoperative morning after surgery in which case pharmacological prophylaxis (possibly subcutaneous heparin or derivative therapy) may need to be considered. The patient was on pharmacological anticoagulant therapy (Eliquis) for history of atrial fibrillation prior to surgery. It would be preferable to avoid anticoagulants until at least 48 hours after both drains have been removed but if recommended by the medical or cardiology covering team, he can be started on low dose aspirin or subcutaneous heparin at any time that the administration of these treatments is deemed to likely decrease his medical or cardiac risk sufficiently to outweigh any associated increase in perioperative risk (primarily of spinal surgical site and epidural hematoma). If more aggressive anticoagulant therapy is recommended during the early postoperative period (1 week postoperatively or 48 hours after drain removal, whichever is latest) or if any questions or concerns arise regarding timing and extent of anticoagulation, contact Dr. Terrazas prior to instituting such treatment. Once the patient has demonstrated stable recovery from spinal surgery through the initial postoperative phase described above then anticoagulant therapy can be reinstated at the discretion of the treating primary care or subspecialty medicine physician as long as Dr. Terrazas and all involved providers are notified so that the patient can be closely monitored for any potential bleeding issues. Assuming standard hospital course: The initial plan is for home discharge after standard 3-5 day postoperative hospital stay following multilevel decompression and fusion. Discharge planning can begin on the morning following surgery once the patient has demonstrated full recovery from anesthesia, adequate pain control, initial mobilization and progression toward independent functional home discharge criteria. If he has difficulty achieving criteria for home discharge by POD #3 then he would be an excellent candidate for an inpatient postoperative rehabilitation program which can be arranged beginning at that point. The patient will be discharged with the following prescriptions: Narcotic Pain Medication: Oxycodone/Acetaminophen 5/325 mg 1-2 PO q4-6 hours prn pain (#40, No Refill) Benzodiazepine Muscle Relaxant Medication: Diazepam 5 mg 1-2 PO q8 hours prn spasm (#30, No Refill) Alternative or additional medications, doses or schedules may be prescribed depending on inpatient postoperative assessments. The patient was instructed not to drive for at least the first 2 weeks postoperatively and given recommendations regarding short distance driving thereafter only if he no longer requires a brace, has good pain control without the need for narcotic or other sedating medication, and has met all DMV criteria for safely operating his specific motor vehicle. Initial postoperative follow-up evaluation was scheduled for the patient prior to surgery and should be approximately 10-14 days postoperatively at which time his surgical site will be checked, his cristin will be removed with steri-strips applied and his early response to surgery will be assessed. Outpatient physical therapy as well as other plans and arrangements will be made at that time along with a schedule for graded return to more normal home activities. The patient may return to non-vigorous activities as tolerated based on symptoms and requirement for sedating medications. He is cautioned regarding bending, lifting, lumbar motion and unsupported upright sitting and is encouraged to support his lumbar region in a slightly reclined and cushioned position whenever prolonged sitting is required. He will not likely be ready for weaning of brace use, prolonged unsupported sitting or more vigorous activities until he has completed at least the initial phase of outpatient postoperative rehabilitation program and demonstrated early fusion consolidation approximately 2-3 months from now, although the specific timing will depend on his standard lumbar decompression and fusion postoperative assessments. He may be able to return to vigorous activities in a graded and progressive fashion starting at 3 months after surgery but this will again depend on postoperative assessments and progress with initial therapy. Anterior-posterior and lateral lumbar spine radiographs will be performed (without the brace in place) at the 2 and 6 week follow-up evaluations unless indicated earlier. Additional postoperative follow -up radiographs will be required thereafter per protocol to assess fusion healing. The patient already has Dr. Ferro office contact information and will again be given the office phone number along with home care instructions prior to discharge. He is encouraged to call for any questions or concerns and particularly for any significant or prolonged fever or incisional drainage, erythema or swelling as well as for any poorly controlled pain or pronounced lower extremity neurological changes. CC: RON WILLINGHAM-NIMESH,CESIA; NINI AGUSTIN,SLIME Myers
[2017-02-22 22:38] VITALS: BP 110/64
[2017-02-23 07:33] VITALS: BP 110/50
--- NOTE | 2017-02-23 07:40 | PN- Orthopedic ---
Subjective Subjective: The patient was seen this morning postoperatively day #2. He reports feeling slightly more comfortable than the day prior with the change in his pain medications. He had no other complaints at the current time and denied any numbness, weakness, or tingling in his extremities. Objective Vital Signs and I&Os Vital Signs Date Time Temp Pulse Resp B/P B/P Pulse O2 O2 Flow FiO2 Mean Ox Delivery Rate 02/23 0733 99.2 70 20 110/50 95 Room Air 02/22 2238 99.8 78 20 110/64 96 Room Air 02/22 1434 98.8 68 20 120/68 96 02/22 1029 98.7 88 20 120/85 96 02/22 0921 98.1 61 20 120/70 02/22 0921 98.1 61 20 120/70 02/22 0756 98.1 61 20 120/70 99 Room Air Intake & Output 02/23 0800 02/23 0000 02/22 1600 02/22 0800 02/22 0000 02/21 1600 Intake Total 600 1107 1005 800 550 Output Total 1290 713 889 5678 1587 Balance -690 307 530 -1430 -1037 Intake, IV 600 567 525 800 Intake, Oral 540 480 0 550 Number 0 Bowel Movements Output, 140 200 175 130 287 Drainage Output, Stool 0 Output, Urine 1150 032 061 0965 1300 Patient 150 lb Weight Physical Exam: Gen.: Alert and in no obvious distress Skin: Warm and dry Extremities: Patient moves all 4 extremities with equal strength. Gross Motor and sensory are intact. Bilateral lower extremities are warm without calf tenderness or significant edema. Back: With surgical dressing that is clean, dry, and intact. There are 2 JPs holding suction with serosanguineous drainage in the bulbs. Assessment/Plan Assessment/Plan Assessment: 71-year-old male status post posterior lumbar fusion L3 through 5 postoperative day #2. The patient is making slow progression and his pain is more adequately managed. His drains continue to put out a significant amount of drainage. Plan: Out of bed and ambulate Hep-Lock IV fluids Keep JPs to self suction Strict I's and O's Continue current pain regiment IV antibiotics until drains are removed Incentive spirometry GI and DVT prophylaxis with Alps and ambulation only no subcutaneous heparin due to nature of surgery and high drain outputs Core Measures/Miscellaneous Venous Thromboembolism VTE Risk Factors: Age > 40, Surgery VTE Contraindications: No Contraindications No Pharm VTE Prophylaxis D/T: Surgical Contraindication VTE Diagnosis: No VTE Type: NONE VTE Confirmed by (Test): NONE Beta Yasmeen Is Beta Yasmeen a Home Med? No Antibiotics Is Patient on Antibiotics? Yes
[2017-02-23 08:03] LABS: ABSOLUTE BASOPHIL COUNT 0 /CUMM (0.0-0.2); ABSOLUTE EOSINOPHIL COUNT 0.2 /CUMM (0.0-0.7); ABSOLUTE GRANULOCYTE CT 8.7 /CUMM (1.4-6.5); ABSOLUTE LYMPH COUNT 1.1 /CUMM (1.2-3.4); ABSOLUTE MONOCYTE COUNT 1.3 /CUMM (0.10-0.60); BASOPHIL % 0.3 % (0.0-2.0); EOSINOPHIL % 2.1 % (0-5); GRANULOCYTE % 76.1 % (42.2-75.2); HEMATOCRIT 31.5 % (42-52); MEAN CORPUSCULAR HGB 30.5 PG (27.0-31.0); MEAN CORPUSCULAR HGB CONC 33.6 G/DL (33.0-37.0); MEAN CORPUSCULAR VOLUME 90.8 FL (80.0-94.0); MEAN PLATELET VOLUME 8.3 FL (7.4-10.4); PLATELET COUNT 171 /CUMM (130-400); RBC DISTRIBUTION WIDTH 14.1 % (11.5-14.5); RED BLOOD CELL CT 3.47 /CUMM (4.70-6.10); WHITE BLOOD CELL COUNT 11.5 /CUMM (4.8-10.8)
[2017-02-23 14:14] VITALS: BP 122/72
[2017-02-23 21:32] VITALS: BP 100/60
[2017-02-24 06:48] VITALS: BP 108/62
--- NOTE | 2017-02-24 07:35 | PN- Orthopedic ---
Subjective Subjective: Reports pain improves with oral dilaudid. Ambulating with rolling walker assistance. No dizziness. No shortness of breath. No chest pains. Voiding well. +colostomy output. No new numbness / tingling / paresthesias. Anticipates discharge to home today. Objective Vital Signs and I&Os Vital Signs Date Time Temp Pulse Resp B/P B/P Pulse O2 O2 Flow FiO2 Mean Ox Delivery Rate 02/24 0648 98.8 73 20 108/62 97 Room Air 02/23 2132 99.5 79 20 100/60 96 Room Air 02/23 1422 Room Air Room Air 02/23 1414 97.2 88 20 122/72 98 02/23 0914 99.2 70 110/50 02/23 0914 99.2 70 20 110/50 Intake & Output 02/24 0800 02/24 0000 02/23 0000 Intake Total 980 116 701 8012 Output Total 2064 859 617 7639 800 Balance -2064 420 -60 -690 307 Intake, IV 180 125 600 567 Intake, Oral 800 480 540 Output, 15 60 165 140 200 Drainage Output, Urine 2049 892 410 2073 600 Physical Exam: General - alert & oriented x 3. comfortable. no acute distress. Lungs - clear bilaterally. no w/r/r. Cardiac - s1s2. reg. Abdomen - soft. nontender. Lumbar - dressing saturated with serous fluid. BREANNE drain with serosang drainage ( 15 mls last shift). dressing removed and incision well approximated with cristin. no erythema or exudates. Extremities - warm bilaterally. no c/c/e. calves soft and nontender b/l. nvi. Current Medications: Current Medications Sig/[place] Start time Last Medication Dose Route Stop Time Status Admin Acetaminophen 1,000 MG .STK-MED ONE 02/23 2051 DC IV 02/24 2052 Acetaminophen 1,000 MG Q6P PRN 02/22 223 AC 02/23 N/A 1 UNIT IV 2049 Cefazolin Sodium 2 GM Q8H 02/22 1800 DC 02/24 N/A 1 UNIT IV 0120 Fluoxetine HCl 60 MG DAILY 02/22 1000 AC 02/23 PO 0915 Gabapentin 300 MG AT BEDTIME 02/21 2200 AC 02/23 PO 2049 Hydromorphone HCl 2 MG Q4P PRN 02/21 1645 AC 02/23 PO 2221 Hydromorphone HCl 4 MG Q4P PRN 02/21 1645 AC 02/23 PO 1726 Lisinopril 20 MG DAILY 02/22 1000 AC 02/23 PO 09 Magnesium Oxide 400 MG BID 02/21 2200 AC 02/23 PO 2050 Morphine Sulfate 2 MG Q2P PRN 02/21 1645 AC 02/23 IV 1556 Ondansetron HCl 4 MG Q6P PRN 02/21 164 AC IV Pravastatin Sodium 40 MG 1700 02/21 1700 AC 02/23 PO 171 Promethazine HCl 12.5 MG Q6P PRN 02/21 1645 AC IV 02/28 1344 Tamsulosin HCl 0.4 MG DAILY 02/22 1000 AC 02/23 PO 09 Trazodone HCl 50 MG QPM 02/21 2200 AC 02/23 PO 2049 Results Last 48 Hours of Labs: Laboratory Tests 02/23 0645 Chemistry Sodium (137 - 145 mmol/L) 135 L Potassium (3.5 - 5.1 mmol/L) 4.0 Chloride (98 - 107 mmol/L) 100 Carbon Dioxide (22 - 30 mmol/L) 30 Anion Gap (5 - 16) 5 BUN (9 - 20 mg/dL) 10 Creatinine (0.7 - 1.2 mg/dL) 0.8 Estimated GFR (>60 ml/min) > 60 BUN/Creatinine Ratio (7 - 25 %) 12.5 Hematology CBC w Diff NO MAN DIFF REQ WBC (4.8 - 10.8 /CUMM) 11.5 H RBC (4.70 - 6.10 /CUMM) 3.47 L Hgb (14.0 - 18.0 G/DL) 10.6 L Hct (42 - 52 %) 31.5 L MCV (80.0 - 94.0 FL) 90.8 MCH (27.0 - 31.0 PG) 30.5 RDW (11.5 - 14.5 %) 14.1 Plt Count (130 - 400 /CUMM) 171 MPV (7.4 - 10.4 FL) 8.3 Gran % (42.2 - 75.2 %) 76.1 H Lymphocytes % (20.5 - 51.1 %) 10.0 L Monocytes % (1.7 - 9.3 %) 11.5 H Eosinophils % (0 - 5 %) 2.1 Basophils % (0.0 - 2.0 %) 0.3 Absolute Granulocytes (1.4 - 6.5 /CUMM) 8.7 H Absolute Lymphocytes (1.2 - 3.4 /CUMM) 1.1 L Absolute Monocytes (0.10 - 0.60 /CUMM) 1.3 H Absolute Eosinophils (0.0 - 0.7 /CUMM) 0.2 Absolute Basophils (0.0 - 0.2 /CUMM) 0 PUBS MCHC (33.0 - 37.0 G/DL) 33.6 Assessment/Plan Assessment/Plan This 71-year-old male is POD#3 s/p posterior lumbar fusion L3-L5 Pain controlled with dilaudid Dressing changed Remaining BREANNE drain removed d/c antibiotics GI and DVT prophylaxis with Alps and ambulation only no subcutaneous heparin due to nature of surgery and high drain outputs continue PT case management to assist with rolling walker and arranging home PT d/c home today discussed above with . communicated to patient to call office weds/ th for brace. Core Measures/Miscellaneous Venous Thromboembolism VTE Risk Factors: Age > 40, Surgery VTE Contraindications: No Contraindications No Pharm VTE Prophylaxis D/T: Surgical Contraindication VTE Diagnosis: No VTE Type: NONE VTE Confirmed by (Test): NONE Beta Yasmeen Is Beta Yasmeen a Home Med? No Antibiotics Is Patient on Antibiotics? Yes
--- NOTE | 2017-02-24 07:47 | Patient Discharge Instructions ---
Discharge Instructions General Discharge Information You were seen/treated for: L3-4, L4-5 LUMBAR SPINAL STENOSIS WITH DEGENERATIVE L3-4 RETROLITHESIS AND L4-5 ANTEROLITHESIS INSTABILITY You had these procedures: L4 DECOMPRESSIVE LAMINECTOMY, BILATERAL L3 INFERIOR HEMILAMINOTOMIES, BILTERAL L3-4 AND L4-5 PARITAL MEDIAL FACETECTOMIES / FORAMINOTOMIES WITH L3-5 POSTEROLATERAL UNINSTRUMENTED FUSION (02/21/17) Watch for these problems: FEVER>101.3, INCREASED PAIN, REDNESS/SWELLING/DRAINAGE, DIZZINESS, SHORTNESS OF BREATH, NUMBNESS/TINGLING/PARESTHESIAS Call Surgeon to remove: [place] No bath, but you may shower: Yes Other wound care: DRY GUAZE DRESSING CHANGE DAILY, LUMBAR INCISION Diet Continue normal diet: No Recommended Diet: Regular Activity Full Activity/No Limits: No Activity Self Limited: Yes Pounds, do NOT lift more than: 10 Activity Limited to: Weight bear as tolerated Other activity limits: PER Acute Coronary Syndrome Inclusion Criteria At DC or during hospital stay patient has or had the following: ACS DIAGNOSIS No Discharge Core Measures Meds if any: Prescribed or Continued at Discharge Meds if any: NOT Prescribed or Continued at Discharge Congestive Heart Failure Inclusion Criteria At DC or during hospital stay patient has or had the following: CHF DIAGNOSIS No Discharge Core Measures Meds if any: Prescribed or Continued at Discharge Meds if any: NOT Prescribed or Continued at Discharge Cerebrovascular accident Inclusion Criteria At DC or during hospital stay patient has or had the following: CVA/TIA Diagnosis No Discharge Core Measures Meds if any: Prescribed or Continued at Discharge Meds if any: NOT Prescribed or Continued at Discharge Venous thromboembolism Inclusion Criteria VTE Diagnosis No VTE Type NONE VTE Confirmed by (Test) NONE Discharge Core Measures - Per Current guidelines, there needs to be overlap - treatment for the first 5 days of Warfarin therapy. - If discharged on Warfarin prior to 5 days of - overlap therapy, the patient will need to be - assessed for post discharge needs including - *Post discharge parental anticoagulation - *Warfarin and/or parental anticoagulation education - *Follow up date to check INR post discharge At least 5 days overlap therapy as Inpatient No Meds if any: Prescribed or Continued at Discharge Note: Overlap Therapy is Warfarin and Anticoagulant Meds if any: NOT Prescribed or Continued at Discharge
[2017-02-24] MEDS ORDERED: VALIUM5 M2 PO (07:49)
[2017-02-24] MEDS ORDERED: DILAUDID2 M1 PO (07:49)
[2017-02-24] MEDS ORDERED: RW (07:51)
--- NOTE | 2017-02-24 07:52 | Surgical Discharge Summary ---
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 Home Who Do You Live With? Spouse Services at Home: None What is Your Primary Language? Luxembourgish Review of Systems: SEE H&P Hospital Course Course Attending Physician: KLEVER AGUSTIN,SLIME Myers Primary Care Physician: DREAD SCHWARTZ MD Hospital Course: Elective planned L4 decompressive laminectomy, bilateral L3 inferior hemilaminotomies, bilateral L3-4 and L4-5 partial medial facetectomies with L3-5 posterolateral uninstrumented fusions performed by on 02/21/17 for L3 -4, L4-5 spinal stenosis with degenerative L3-4 retrolithiasis and L4-5 anterolithesis instability. BREANNE drains were left in place post-operatively, with continued antibiotics until both drains were removed. Pain control transitioned from iv to oral narcotics as able. Ambulating with rolling walker, and daily PT assistance / evaluation recommending continued home PT at the time of discharge to home on 02/24/17. Complications: None Allergies: Coded Allergies: gluten (UNKNOWN 08/10/16) Disposition Summary Disposition Principal Diagnosis: L3-4, L4-5 spinal stenosis with degenerative L3-4 retrolithiasis and L4-5 anterolithesis instability Additional Diagnosis: s/p L4 decompressive laminectomy, bilateral L3 inferior hemilaminotomies, bilateral L3-4 and L4-5 partial medial facetectomies with L3-5 posterolateral uninstrumented fusion Discharge Disposition: home health services Discharge Instructions General Discharge Information Code Status: Full Code Patient's Diet: regular, as tolerated Patient's Activity: as tolerated. ambulate with rolling walker assistance. continue PT as outpatient. Follow-Up Instructions/Appts: refer to pre-printed instructions Medications at Discharge Discharge Medications: Stop taking the following medications: Aspirin (Ecotrin*) 81 MG TABLET.DR ORAL DAILY Qty = 30 Oxycodone HCl (Oxycodone HCl) 5 MG TABLET ORAL 4 times daily as needed Continue taking these medications: Benazepril HCl (Benazepril HCl) 20 MG TABLET 1 Tablet ORAL DAILY Qty = 30 Comments: NOT GIVEN Tamsulosin HCl (Tamsulosin HCl) 0.4 MG CAP.ER.24H 1 Capsule ORAL DAILY Qty = 30 Comments: Last Taken: 08/11/16 Time: 9:30 AM Pravastatin Sodium (Pravastatin Sodium) 40 MG TABLET 1 Tablet ORAL DAILY Qty = 30 Comments: Last Taken: 08/11/16 Time: 9:30 AM Trazodone HCl (Trazodone HCl) 50 MG TABLET 1 Tablet ORAL Every night Qty = 30 Comments: Last Taken: 08/10/16 Time: 9:00 PM Magnesium Oxide (Magnesium Oxide) 400 MG TABLET 1 Tablet ORAL TWICE DAILY Qty = 30 Comments: TAKE FIRST DOSE TONIGHT 08/11/16 Fluoxetine HCl (Fluoxetine HCl) 60 MG TABLET 1 Tablet ORAL DAILY Gabapentin (Gabapentin) 300 MG CAPSULE 1 Capsule ORAL NIGHTLY Start taking the following new medications: Diazepam (Valium) 5 MG TABLET 1 Tablet ORAL THREE TIMES A DAY NEEDED as needed for SPASMS Qty = 30 No Refills Instructions: TAKE DIRECTED FOR MUSCLE SPASMS. STAGGER WITH DILAUDID. Hydromorphone HCl (Dilaudid) 2 MG TABLET 1-2 Tablet ORAL EVERY 4-6 HOURS NEEDED as needed for PAIN CONTROL Qty = 36 No Refills Instructions: TAKE DIRECTED FOR PAIN CONTROL Rolling Walker (Rolling Walker) UNIT Unit SEE INSTRUCTIONS Qty = 1 No Refills Instructions: Use as instructed. Copies To: LANA AGUSTIN,DREAD Reddy
[2017-02-24 14:41] VITALS: BP 120/70
== END 2017-02-24 15:00 | disposition home health service (06) | DRG 460 ==
LOC: SDA 02:00 → 2NA 02:00 → ENRESERV 14:09 → 2NA 16:16 → ENPENDDIS 02-24 08:33 → 2NA 02-24 15:00
PROVIDERS: Nurse Practitioner; Physician Assistant; ADMIT Orthopaedic Surgery Orthopaedic Surgery of the Spine
PROC: 0SG1071 Fusion of 2 or more Lumbar Vertebral Joints with Autologous Tissue Substitute, Posterior Approach, Posterior Column, Open Approach (ICD-10-PCS; principal; 2017-02-21)
PROC: 4A11X4G Monitoring of Peripheral Nervous Electrical Activity, Intraoperative, External Approach (ICD-10-PCS; principal; 2017-02-21)
PROC: 01NB0ZZ Release Lumbar Nerve, Open Approach (ICD-10-PCS; principal; 2017-02-21)
DX: M47.26 Other spondylosis with radiculopathy, lumbar region (principal); J44.9 Chronic obstructive pulmonary disease, unspecified; I48.0 Paroxysmal atrial fibrillation; M48.06 Spinal stenosis, lumbar region; M51.26 Other intervertebral disc displacement, lumbar region; M21.372 Foot drop, left foot; M51.36 Other intervertebral disc degeneration, lumbar region; M43.16 Spondylolisthesis, lumbar region; Z93.3 Colostomy status; Z85.048 Personal history of other malignant neoplasm of rectum, rectosigmoid junction, and anus; I10 Essential (primary) hypertension; K21.9 Gastro-esophageal reflux disease without esophagitis; N40.0 Benign prostatic hyperplasia without lower urinary tract symptoms; R91.1 Solitary pulmonary nodule; E78.5 Hyperlipidemia, unspecified
CPT/HCPCS: 2NASP; 36415; 72020; 82436; 87086; 97110-GO; 97116-GO; 97161-GP; J0131; J0690; J1100; J1644; J2405; J2550; J7042

== ENCOUNTER 2017-02-27 20:14 | Emergency (ER) | payer OTHER, MEDICARE ==
[~2017-02-27] VITALS: Ht 177.8 cm; Wt 70.3 kg
[~2017-02-27 20:14] MED LIST changes: +DILAUDID2 M1 PO; +RW; +VALIUM5 M2 PO
[2017-02-27] MEDS ORDERED: OXYCODONE-ACET1 EACH PO (20:59)
[2017-02-27] MEDS ORDERED: RANITIDINE HCL150 MG PO (20:59)
--- NOTE | 2017-02-27 21:51 | ED AMS/SEIZURE/WEAK/DIZZY ---
History of Present Illness General Chief Complaint: General Adult Stated Complaint: BIBA, WEAKNESS Source: patient, family Exam Limitations: no limitations Vital Signs & Intake/Output Vital Signs & Intake/Output Vital Signs Date Time Temp Pulse Resp B/P B/P Pulse O2 O2 Flow FiO2 Mean Ox Delivery Rate 02/27 2341 98.0 78 18 114/61 97 Room Air 02/27 2017 97.7 81 20 109/55 96 Room Air ED Intake and Output 02/28 0000 02/27 1200 Intake Total Output Total Balance Patient 155 lb Weight Allergies Coded Allergies: gluten (UNKNOWN 08/10/16) Reconcile Medications Benazepril HCl 20 MG TABLET 1 TAB PO DAILY HIGH BLOOD PRESSURE (Reported) Diazepam (Valium) 5 MG TABLET 1 TAB PO TIDPRN PRN SPASMS TAKE DIRECTED FOR MUSCLE SPASMS. STAGGER WITH DILAUDID. Fluoxetine HCl 60 MG TABLET 1 TAB PO DAILY MENTAL HEALTH (Reported) Gabapentin 300 MG CAPSULE 1 CAP PO NIGHTLY PAIN (Reported) Hydromorphone HCl (Dilaudid) 2 MG TABLET 1-2 TAB PO Q4-6 PRN PRN PAIN CONTROL TAKE DIRECTED FOR PAIN CONTROL Magnesium Oxide 400 MG TABLET 1 TAB PO BID LOW MAGNESIUM Oxycodone HCl/Acetaminophen (Oxycodone-Acetaminophen 5-325) 5 MG-325 MG TABLET 1 TAB PO AD PRN PAIN (Reported) Pravastatin Sodium 40 MG TABLET 1 TAB PO DAILY HIGH CHOLESTROL (Reported) Ranitidine (Ranitidine HCl) 150 MG TABLET 1 TAB PO BID GI (Reported) Tamsulosin HCl 0.4 MG CAP.ER.24H 1 CAP PO DAILY BPH (Reported) Trazodone HCl 50 MG TABLET 1 TAB PO QPM Mental Health (Reported) Triage Note: PT BIBA FROM HOME C/O BACK PAIN AND WEAKNESS DUE TO BACK Triage Nurses Notes Reviewed? yes HPI: Mr. Blanchard is a 71 yo m w/ PMH hypertension, hyperlipidemia, COPD, GERD, BPH, anxiety, depression, BPH, spinal stenosis status post spinal fusion one week ago presenting to ED for an episode of AMS. states the patient was completely normal this morning. When she came home this evening, he was confused and dazed. He seemed to be overall weak. was unsure of what caused this. He should states she took 2 Valium 5 mg tablets. He is unsure when he last took his pain medication. believes he is not keeping track of the medication and accidentally taking them when he feels any symptoms, without keeping track of what time. She is concerned that he might have accidentally took too much. He denies any fevers, chills, chest pain, bowel pain, nausea, vomiting, diarrhea. (MURTAZA BRISCOE MD) Past History Travel History Traveled to [place] past 21 day No Medical History Any Pertinent Medical History? 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 No (MURTAZA BRISCOE MD) Review of Systems Review of Systems Constitutional: Reports: weakness. EENTM: Reports: no symptoms. Respiratory: Reports: no symptoms. Cardiovascular: Reports: no symptoms. GI: Reports: no symptoms. Genitourinary: Reports: no symptoms. Musculoskeletal: Reports: back pain. Skin: Reports: no symptoms. Neurological/Psychological: Reports: no symptoms. Hematologic/Endocrine: Reports: no symptoms. Immunologic/Allergic: Reports: no symptoms. All Other Systems: Reviewed and Negative (MURTAZA BRISCOE MD) Physical Exam Physical Exam General Appearance: well developed/nourished, no apparent distress, alert, awake , comfortable Head: atraumatic, normal appearance Eyes: Bilateral: normal appearance, PERRL, EOMI. Ears, Nose, Throat: normal pharynx, normal ENT inspection, hearing grossly normal Neck: normal inspection, supple, full range of motion Respiratory: normal breath sounds, chest non-tender, no respiratory distress Cardiovascular: regular rate/rhythm Gastrointestinal: normal bowel sounds, soft, non-tender Back: no vertebral tenderness, midline cristin over lumbar area. No erythema to site. No fluctuance or midline TTP Neurologic/Psych: no motor/sensory deficits, awake, alert, oriented x 3, normal gait (slow), normal mood/affect Skin: intact, normal color, warm/dry Core Measures ACS in differential dx? No CVA/TIA Diagnosis: No Severe Sepsis Present: No Septic Shock Present: No (RACHNA AGUSTIN,MURTAZA) Progress Differential Diagnosis: dehydration, drug intoxication, encephalitis, electrolyte imbalance Plan of Care: Orders Procedure Date/time Status Add-on Test (ER Only) 02/27 2151 Active PHOSPHORUS 02/28 2148 Complete MAGNESIUM 02/28 2148 Complete URINALYSIS 02/28 2140 Complete COMPREHENSIVE METABOLIC PANEL 02/28 2140 Complete CBC WITHOUT DIFFERENTIAL 02/28 2140 Complete EKG 02/28 2140 Active Laboratory Tests 02/27/175: Urine Color YEL, Urine Clarity CLEAR, Urine pH 7.0, Ur Specific [place] 1.010, Urine Protein NEG, Urine Ketones NEG, Urine Nitrite NEG, Urine Bilirubin NEG, Urine Urobilinogen 0.2, Ur Leukocyte Esterase NEG, Ur Microscopic EXAM NOT REQUIRED, Urine Hemoglobin NEG, Urine Glucose NEG 02/27/172147: Anion Gap 9, Estimated GFR > 60, BUN/Creatinine Ratio 20.0, Glucose 108 H, Calcium 8.4, Phosphorus 3.0, Magnesium 1.6, Total Bilirubin 0.5, AST 43, ALT 41, Alkaline Phosphatase 80, Total Protein 5.6 L, Albumin 3.0 L, Globulin 2.6, Albumin/Globulin Ratio 1.2, CBC w Diff NO MAN DIFF REQ, RBC 3.15 L, MCV 89.8, MCH 30.4, RDW 12.9, MPV 7.2 L, Gran % 80.1 H, Lymphocytes % 7.1 L, Monocytes % 11.2 H, Eosinophils % 1.2, Basophils % 0.4, Absolute Granulocytes 8.5 H, Absolute Lymphocytes 0.8 L, Absolute Monocytes 1.2 H, Absolute Eosinophils 0.1 , Absolute Basophils 0, PUBS MCHC 33.8 Patient is a chronically ill-appearing however nontoxic male brought into the ED for evaluation for an episode of altered mental status. noted the patient to be confused when she came home from work. She is unsure what medications he administered while she was not home. Patient states he took 2 Valium for back spasm. She is unsure whether he took any pain medications with that. No focal symptoms on neuro exam. Patient had spinal fusion 1 week ago and the incision site in his lumbar area is well-appearing. [place] are still in place without any erythema, fluctuance, or tenderness to palpation. Likely this was an accidental overdose. However will obtain basic labs to assess for electrolyte derangement and possible UTI given the recent hospitalization as well as Fan placement while in the OR. Labs otherwise unremarkable. Patient has mildly low magnesium which is minimally changed from baseline. Per , patient is back to his baseline. Plan to discharge home with follow-up with his primary care doctor. given precautions. (MURTAZA BRISCOE MD) Initial ED EKG: none (MURTAZA BRISCOE MD) Departure Departure Time of Disposition: 2329 Disposition: HOME OR SELF CARE Condition: Stable Clinical Impression Primary Impression: Confusion Referrals: LANA AGUSTIN,DREAD Reddy (PCP/Family) Additional Instructions: Please speak careful when taking your pain medication or muscle relaxant. He should not be taking both at same time. If you do not keep track of them, you could take too much and cause some significant confusion or even fall and get injured. If you develop fever, worsening back pain or any other concerning symptoms, please return to the emergency department for further evaluation. Departure Forms: Customer Survey General Discharge Information (MURTAZA BRISCOE MD) Resident Co-Sign Statement Statement: ED Attending supervision documentation- x I saw and evaluated the patient. I have also reviewed all the pertinent lab results and diagnostic results. I agree with the findings and the plan of care as documented in the Resident's documentation. [] I have reviewed the ED Record and agree with the Resident's documentation. [] Additions or exceptions (if any) to the Resident's note and plan are summarized below: [] (MARY AGUSTIN,ARA)
[2017-02-27 22:03] LABS: ABSOLUTE BASOPHIL COUNT 0 /CUMM (0.0-0.2); ABSOLUTE EOSINOPHIL COUNT 0.1 /CUMM (0.0-0.7); ABSOLUTE GRANULOCYTE CT 8.5 /CUMM (1.4-6.5); ABSOLUTE LYMPH COUNT 0.8 /CUMM (1.2-3.4); ABSOLUTE MONOCYTE COUNT 1.2 /CUMM (0.10-0.60); BASOPHIL % 0.4 % (0.0-2.0); EOSINOPHIL % 1.2 % (0-5); GRANULOCYTE % 80.1 % (42.2-75.2); HEMATOCRIT 28.3 % (42-52); MEAN CORPUSCULAR HGB 30.4 PG (27.0-31.0); MEAN CORPUSCULAR HGB CONC 33.8 G/DL (33.0-37.0); MEAN CORPUSCULAR VOLUME 89.8 FL (80.0-94.0); MEAN PLATELET VOLUME 7.2 FL (7.4-10.4); RBC DISTRIBUTION WIDTH 12.9 % (11.5-14.5); RED BLOOD CELL CT 3.15 /CUMM (4.70-6.10); WHITE BLOOD CELL COUNT 10.6 /CUMM (4.8-10.8)
[2017-02-27 22:05] LABS: PLATELET COUNT 299 /CUMM (130-400)
[2017-02-27 23:41] VITALS: BP 114/61
== END 2017-02-27 23:43 ==
LOC: ERH 20:14
PROVIDERS: Emergency Medicine
DX: R41.0 Disorientation, unspecified (principal); I10 Essential (primary) hypertension; R53.1 Weakness
CPT/HCPCS: 81003; 93005; 93010

== ENCOUNTER 2017-11-10 00:54 | Inpatient (IN) | payer OTHER, MEDICARE ==
[~2017-11-10] VITALS: Ht 177.8 cm; Wt 74.8 kg
[~2017-11-10 00:54] MED LIST changes: +OXYCODONE-ACET1 EACH PO; +RANITIDINE HCL150 MG PO; +VENLAFAXINE HCL75 M1 PO
--- NOTE | 2017-11-10 09:26 | Operative Report ---
Operative/Inv Procedure Report Surgery Date: 11/10/17 Name of Procedure: Left total hip arthroplasty Pre-Operative Diagnosis: Left hip primary osteoarthritis Post-Operative Diagnosis: Same Estimated Blood Loss: 50ml to 100ml Surgeon/Bending Machine Operator: Sanya AGUSTIN,Castro Causey Anesthesia: general endotracheal tube Implants: [place] secure fit size 8 femoral stem with a 127 neck angle, 58 Trident acetabulum, 36+0 Biolox femoral head Drains: None Specimens: Femoral head and acetabular reamings Microbiology: Urine Complications: None Condition: Stable Operative Indication: Patient is a 72-year-old male with a long history of gradually worsening left hip pain. He was diagnosed with osteoarthritis and treated conservatively for a prolonged period of time. He underwent right total hip arthroplasty in the past for same diagnosis of primary osteoarthritis. He had ongoing left hip problems and after he recovered from his back procedure, he wished to proceed with total hip arthroplasty. Risks benefits and expectations of the surgical procedure were discussed which included but were not limited to persistent hip pain, need for substance surgery, infection, DVT, injury to blood vessel or nerve, anesthesia risk leg length discrepancy and dislocation/instability. Operative/Procedure Note Note: Patient was brought to the operating room and transferred to the operating table. Once under appropriate anesthesia the patient was placed into a right lateral decubitus position with left side up. All bony prominences were well- padded. The left lower extremity was prepped and draped in standard fashion. Preoperative IV antibiotic's were given prophylactically. A standard posterior incision was made for anticipated superior approach to the hip. The incision was taken down sharply to the underlying fascia. The fascia was incised in line with the skin incision. The hip was internally rotated placing the external rotators on tension. The piriformis was identified and reflected posteriorly from its insertion site. This allowed us to visualize the interval between the radius minimus tendon and the superior capsule. A retractor was placed in this interval and a retractor was placed inferiorly. A central portion of the posterior capsule was incised and reflected posteriorly. Superior and inferior portions of the capsule were excised. Hip was dislocated. Severe end-stage osteoarthritic changes of the femoral head were noted. Eburnated bone. Femoral Neck cut was then made based on preoperative templating and intraoperative measurements. The head was removed. This allowed us to visualize the acetabular fossa. The SNF fossa was severely degenerative area degenerative labral tissues were excised circumferentially. All soft tissues removed from the acetabular fossa and then reaming started at size 48. I reamed up to a size 57 for anticipated insertion of a size 58 acetabular shell. If size 56 trial was used to confirm circumferential reaming. I was satisfied with this. Copious irrigation of the acetabular fossa followed and then insertion of the definitive size 58 Trident acetabular cup was placed. Excellent scratch fit. 2 standard 6.5 mm screws were placed in the safe zone. After irrigation of the acetabular component I placed the definitive liner to accept a size [address]. The locking mechanism was confirmed. A lap sponge was placed in acetabular fossa to protect the polyethylene during preparation of the femur. The femur was then internally rotated and flexed to allow for exposure of the proximal femur. Retractors were placed. I used a box osteotome to lateralize my insertion site. I then started with the canal finder followed by serial reamers up to a size 8. The last reamer was on power. I then broached up to a size 8. I was satisfied with the fit and fill of the size 8 broach. I left the last broach in place and then trialed with a 127 neck angle and a 36+0 femoral head. Hip was reduced. I was satisfied with the stability as well as buddhist of the length of the lower extremity in relationship to the right side. I then removed all trial components and copiously irrigated the femoral canal. The definitive size 8 secure fit femoral stem was inserted with a 127 neck angle. Again, excellent scratch fit. I dried the trunnion of the prosthesis and place a definitive 36+0 femoral head Biolox femoral head in place. The locking mechanism was confirmed. Hip was reduced and again the stability was confirmed. I was satisfied with the stability in all planes. No evidence of anterior instability with simultaneous extension and external rotation. No sign of posterior instability with simultaneous internal rotation adduction and flexion to greater than 90. Copious irrigation of every lever layer followed every level of closure. The capsule was repaired the piriformis was repaired. Fascia was repaired with running #1 Vicryl suture in the muscular portion and interrupted in the more fascial section. Subcutaneous tissues closed in 2 layers with 2-0 Vicryl skin was closed with cristin. Appropriate dressings were applied and patient was awakened and taken to recovery room in good condition. Blood loss was approximately 100 mL. No intraoperative complications Discharge Disposition: PACU
--- NOTE | 2017-11-10 10:21 | RADIOLOGY REPORT ---
EXAMINATION: XR HIP, LEFT CLINICAL INFORMATION: Left total hip replacement. PACU. COMPARISON: 02/14/2016 TECHNIQUE: Single view of the left hip. FINDINGS: In the interval since the prior study there has been a total left hip replacement. There is no evidence of hardware complication on this single view. Alignment appears anatomic. No periprosthetic fractures. There is some scattered soft tissue gas and skin cristin, compatible with immediately postoperative state. Mild vascular calcifications are visualized. IMPRESSION: Status post total hip replacement. No radiographic evidence of hardware complication on this single view.
--- NOTE | 2017-11-10 10:37 | Patient Discharge Instructions ---
Discharge Instructions General Discharge Information You were seen/treated for: left hip pain You had these procedures: left toal hip replacement Watch for these problems: temp greater than 101 redness and drainage from wound Other wound care: OK to shower keep incision clean and dry Diet Continue normal diet: Yes Activity Activity Self Limited: Yes Activity Limited to: Weight bear as tolerated Acute Coronary Syndrome Inclusion Criteria At DC or during hospital stay patient has or had the following: ACS DIAGNOSIS No Discharge Core Measures Meds if any: Prescribed or Continued at Discharge Meds if any: NOT Prescribed or Continued at Discharge Congestive Heart Failure Inclusion Criteria At DC or during hospital stay patient has or had the following: CHF DIAGNOSIS No Discharge Core Measures Meds if any: Prescribed or Continued at Discharge Meds if any: NOT Prescribed or Continued at Discharge Cerebrovascular accident Inclusion Criteria At DC or during hospital stay patient has or had the following: CVA/TIA Diagnosis No Discharge Core Measures Meds if any: Prescribed or Continued at Discharge Meds if any: NOT Prescribed or Continued at Discharge Venous thromboembolism Inclusion Criteria VTE Diagnosis No VTE Type NONE VTE Confirmed by (Test) NONE Discharge Core Measures - Per Current guidelines, there needs to be overlap - treatment for the first 5 days of Warfarin therapy. - If discharged on Warfarin prior to 5 days of - overlap therapy, the patient will need to be - assessed for post discharge needs including - *Post discharge parental anticoagulation - *Warfarin and/or parental anticoagulation education - *Follow up date to check INR post discharge At least 5 days overlap therapy as Inpatient No Meds if any: Prescribed or Continued at Discharge Note: Overlap Therapy is Warfarin and Anticoagulant Meds if any: NOT Prescribed or Continued at Discharge
--- NOTE | 2017-11-10 10:40 | Admission Core Measures ---
Acute Coronary Syndrome (CM) ACS Core Measures Acute Coronary Syndrome Diagnosis No Congestive Heart Failure (NEW) CHF Core Measures Congestive Heart Failure Diagnosis No Cerebrovascular Accident (NEW) CVA Core Measures CVA/TIA Diagnosis No Venous Thromboembolism VTE Core Mrailyn (View Protocol) VTE Risk Factors Surgery No Mechanical VTE Prophylaxis d/t N/A MechProphylax Ordered No VTE Pharm Prophylaxis d/t NA PharmProphylax ordered Problem List As ranked by this Provider includes Assessment & Plan 1. Status post total hip replacement, left HOME MEDS Home Med List Benazepril HCl 20 MG TABLET 1 TAB PO DAILY HIGH BLOOD PRESSURE (Reported) Pravastatin Sodium 40 MG TABLET 1 TAB PO DAILY HIGH CHOLESTROL (Reported) Ranitidine (Ranitidine HCl) 150 MG TABLET 1 TAB PO BID GI (Reported) Tamsulosin HCl 0.4 MG CAP.ER.24H 1 CAP PO DAILY BPH (Reported) Trazodone HCl 50 MG TABLET 1 TAB PO QPM Mental Health (Reported) Venlafaxine HCl (Venlafaxine HCl ER) 75 MG CAP.ER.24H 1 CAP PO DAILY UNKNOWN (Reported)
--- NOTE | 2017-11-10 10:44 | Surgical Discharge Summary ---
Visit Information Visit Dates Admission Date: 11/10/17 Discharge Date: 11/12/17 History of Present Illness Chief Complaint: left hip pain Medical History Neurological: NONE EENT: cataracts Cardiovascular: AFIB, hypertension, hyperlipidemia Respiratory: COPD Gastrointestinal: GERD Hepatic: NONE Renal: benign prost hyperplasia Musculoskeletal: spinal stenosis, ARTHRITIS Psychiatric: anxiety, depression Endocrine: NONE Blood Disorders: NONE Cancer(s): colon/rectal cancer MAGNETIC DOCTOR/Reproductive: NONE Other Medical Hx: Hypomagnesemia, hypokalemia History of MRSA: No History of VRE: No History of CDIFF: No Surgical History Pertinent Surgical History: colostomy R HIP REPLACEMENT COLON RESECTION LUNG BIOPSY Psychosocial History Who Do You Live With? Spouse Services at Home: None What is Your Primary Language? [place] Citizen Review of Systems: as per [facility] Hospital Course Course Attending Physician: Sanya AGUSTIN,[facility] Primary Care Physician: Andriy Nails MD Hospital Course: pt presented on 11/10/17 for an elective Left SON. pt tolerated the procedure well. postoperatively he was voiding, his pain was managed by oral medication and he was ambulating with physical therapy. he was cleared for discharge by PT. Allergies: Coded Allergies: gluten (UNKNOWN 08/10/16) Disposition Summary Disposition Principal Diagnosis: Primary unilateral left hip OA Additional Diagnosis: SP Left SON Discharge Disposition: home health services Discharge Instructions General Discharge Information Code Status: Full Code Patient's Diet: regular Patient's Activity: WBAT, posterior hip precautions Follow-Up Instructions/Appts: keep scheduled follow-up appointment Medications at Discharge Discharge Medications: Continue taking these medications: Benazepril HCl (Benazepril HCl) 20 MG TABLET 1 Tablet ORAL DAILY Qty = 30 Comments: NOT GIVEN IN HOSPITAL, LISINOPRIL WAS USED IN PLACE Last Taken: 11/12/17 Time: 9:26 AM Tamsulosin HCl (Tamsulosin HCl) 0.4 MG CAP.ER.24H 1 Capsule ORAL DAILY Qty = 30 Comments: Last Taken: 11/12/17 Time: 9:27 AM Pravastatin Sodium (Pravastatin Sodium) 40 MG TABLET 1 Tablet ORAL DAILY Qty = 30 Comments: Last Taken: 11/12/17 Time: 9:28 AM Trazodone HCl (Trazodone HCl) 50 MG TABLET 1 Tablet ORAL Every night Qty = 30 Comments: Last Taken: 11/11/17 Time: 11:00 PM Ranitidine (Ranitidine HCl) 150 MG TABLET 1 Tablet ORAL TWICE DAILY Qty = 180 Comments: NOT GIVEN IN HOSPITAL Venlafaxine HCl (Venlafaxine HCl ER) 75 MG CAP.ER.24H 1 Capsule ORAL DAILY Comments: Last Taken:11/11/17 Time:11:00 PM Start taking the following new medications: Oxycodone HCl/Acetaminophen (Percocet 5-325 MG Tablet) 5 MG-325 MG TABLET 1-2 Tablet ORAL EVERY 4-6 HOURS as needed for PAIN Qty = 36 No Refills Comments: Last Taken:11/11/17 Time:11:40 PM Apixaban (Eliquis) 2.5 MG TABLET 1 Tablet ORAL TWICE DAILY Qty = 84 No Refills Comments: Last Taken:11/12/17 Time:9:27 AM
[2017-11-10 11:50] VITALS: BP 122/72
[2017-11-10 13:04] VITALS: BP 114/70
--- NOTE | 2017-11-10 14:59 | PN- Orthopedic ---
Subjective Subjective: POC drowsy. awakes to verbal stimuli, answers questions appropriately. denies pain. no n/v/cp/sob. no oob yet. +uo via scherer Objective Vital Signs and I&Os Vital Signs Date Time Temp Pulse Resp B/P B/P Pulse O2 O2 Flow FiO2 Mean Ox Delivery Rate 11/10 1304 98.1 62 18 114/70 99 Nasal 2.0L Cannula 11/10 1200 96 Nasal 2.0L Cannula 11/10 1150 97.2 78 18 122/72 96 Nasal 2.0L Cannula Intake & Output 11/10 1600 11/10 0800 11/10 0000 11/09 1600 11/09 0800 11/09 0000 Intake Total Output Total Balance Patient 165 lb Weight Weight Reported by Patient Measurement Method Physical Exam: gen- sleepy. awakes to voice, answers appropriately, orientated x3, follows verbal commands. pinpoint pupils card- s1s2 pulm-no audible wheeze abd- ostomy bag opaque, stool in bad. soft nt ext- calves soft nt, abd pillow in place, scant drainage on left hip dressing, nontender, +dp pulses, gross sensation intact, plantar/dorsi flexion intact Assessment/Plan Assessment/Plan A- POD0 sp L SNO, drowsy from anesthesia though awakens and reponds appropriately to verbal commands, stable P- defer PT until less drowsy, then wbat limit narcotics eliquis bid o2 as needed, keep 2L on until less drowsy hip precautions scherer- dc in am reg diet as tolerated am labs home meds will dw attending Core Measures Venous Thromboembolism VTE Risk Factors Surgery No Mechanical VTE Prophylaxis d/t N/A MechProphylax Ordered No VTE Pharm Prophylaxis d/t NA PharmProphylax ordered
[2017-11-10 16:02] VITALS: BP 120/68
[2017-11-10 23:06] VITALS: BP 153/69
[2017-11-11 07:19] VITALS: BP 111/82
--- NOTE | 2017-11-11 08:18 | PN- Orthopedic ---
See Addendum Subjective Subjective: PT SITTING UP IN BED. TOLERATING REG DIET. HAS NOT VOIDED YET RUSSELL WAS JUST REMOVED THIS MORNING. PAIN UNDER CONTROL WITH ORAL MEDICATION DID NOT AMBULATE YESTERDAY BC WAS VERY DROWSY BUT IS LOOKING FORWARD TO WORKING WITH PT TODAY Objective Vital Signs and I&Os Vital Signs Date Time Temp Pulse Resp B/P B/P Pulse O2 O2 Flow FiO2 Mean Ox Delivery Rate 11/11 0753 18 96 Nasal 1.0L Cannula 11/11 0719 98.0 63 18 111/82 99 Nasal 2.0L Cannula 11/11 0000 98 Nasal 2.0L Cannula 11/10 2306 97.0 65 20 153/69 99 Nasal 2.0L Cannula 11/10 1602 97.6 52 16 120/68 98 Nasal 1.0L Cannula 11/10 1304 98.1 62 18 114/70 99 Nasal 2.0L Cannula 11/10 1200 96 Nasal 2.0L Cannula 11/10 1150 97.2 78 18 122/72 96 Nasal 2.0L Cannula Intake & Output 11/11 1600 11/11 0800 11/11 0000 11/10 1600 11/10 0800 11/10 0000 Intake Total 840 900 225 Output Total 1800 1200 200 Balance -960 -300 25 Intake, IV 600 300 225 Intake, Oral 240 600 0 Output, Urine 1800 1200 200 Patient 165 lb Weight Weight Reported by Patient Measurement Method Physical Exam: GEN-NAD RESP-CLEAR CARDIO-RRR ABD-SOFT NONTENDER EXT- LEFT HIP SOFT, APPROPRIATELY TENDER, NO SIGNS OF INFECTION, DRESSING CLEAN AND DRY. DISTAL MOVEMENT AND SENSATION INTACT. 2+ LEFT PT PULSE Assessment/Plan Assessment/Plan POD1 sp L SON, stable PT TODAY- WBAT limit narcotics eliquis bid o2 as needed hip precautions reg diet as tolerated am labs home meds ADDED VOLTAREN GEL FOR HAND PAIN Core Measures Venous Thromboembolism VTE Risk Factors Surgery No Mechanical VTE Prophylaxis d/t N/A MechProphylax Ordered No VTE Pharm Prophylaxis d/t NA PharmProphylax ordered
[2017-11-11 09:05] LABS: ABSOLUTE BASOPHIL COUNT 0 /CUMM (0.0-0.2); ABSOLUTE EOSINOPHIL COUNT 0 /CUMM (0.0-0.7); ABSOLUTE GRANULOCYTE CT 9.4 /CUMM (1.4-6.5); ABSOLUTE MONOCYTE COUNT 1.2 /CUMM (0.10-0.60); BASOPHIL % 0 % (0.0-2.0); EOSINOPHIL % 0.1 % (0-5); GRANULOCYTE % 81.6 % (42.2-75.2); HEMATOCRIT 32.7 % (42-52); MEAN CORPUSCULAR HGB 30.8 PG (27.0-31.0); MEAN CORPUSCULAR HGB CONC 33.7 G/DL (33.0-37.0); MEAN CORPUSCULAR VOLUME 91.3 FL (80.0-94.0); MEAN PLATELET VOLUME 8.3 FL (7.4-10.4); PLATELET COUNT 178 /CUMM (130-400); RBC DISTRIBUTION WIDTH 14.9 % (11.5-14.5); RED BLOOD CELL CT 3.58 /CUMM (4.70-6.10); WHITE BLOOD CELL COUNT 11.6 /CUMM (4.8-10.8)
[2017-11-11 14:10] VITALS: BP 94/56
[2017-11-11 14:12] VITALS: BP 108/64
[2017-11-11 23:35] VITALS: BP 121/64
[2017-11-12 06:08] VITALS: BP 102/54
--- NOTE | 2017-11-12 07:28 | PN- Orthopedic ---
See Addendum Subjective Subjective: Reported difficulty voiding last evening, improved with resumption of home dose of flomax. Pain tolerable. Sleep improved overnight. No c/o chest pain, shortness of breath and difficulty breathing. No c/o nausea or vomitting. Has been oob. Is anticipating PT today, plan is to dc to home today vs tomorrow. Objective Vital Signs and I&Os Vital Signs Date Time Temp Pulse Resp B/P B/P Pulse O2 O2 Flow FiO2 Mean Ox Delivery Rate 11/12 0608 98.5 78 18 102/54 96 11/11 2335 98.3 84 20 121/64 96 Room Air 11/11 2258 84 121/64 11/11 2051 86 96 Room Air 11/11 1600 94 Nasal 1.0L Cannula 11/11 1412 108/64 11/11 1410 98.7 67 18 94/56 99 11/11 1026 97 Nasal 1.0L Cannula 11/11 1020 20 90 Room Air 11/11 1015 20 89 Room Air 11/11 0920 118/78 11/11 0800 99 Nasal 2.0L Cannula 11/11 0753 18 96 Nasal 1.0L Cannula Intake & Output 11/12 0800 11/12 0000 11/11 1600 11/11 0800 11/11 0000 11/10 1600 Intake Total 240 1260 1200 840 900 225 Output Total 475 0610 387 9065 1200 200 Balance -235 10 250 -960 -300 25 Intake, IV 460 500 600 300 225 Intake, Oral 240 800 700 240 600 0 Number 0 Bowel Movements Output, Stool 0 150 Output, Urine 475 4816 172 8448 1200 200 Patient 165 lb Weight Weight Reported by Patient Measurement Method Physical Exam: General: Alert and oriented x3, no acute distress Cardiac: RRR, s1s2 Pulm: CTA bilaterally ABD: non-tender, non-distended Extremities: Abduction pillow in place, no rotational deformity. Moves all extremities, distal sensation grossly intact. Skin warm and well perfused. DP pulses palpable bilaterally. Bilateral calves soft and non-tender. Surgical site: Left hip, posterior. Dressing dry and intact. Taken down, no evidence of active drainage. Skin edges well approximated with cristin. Some foreign-incisional bruising, no hematoma. No erythema. Thigh compartment soft. Clean, dry dressing reapplied. Assessment/Plan Assessment/Plan This is a 72 year old, POD 2, s/p L SON -Continue eliquis 2.5 bid for dvt ppx x6 weeks -Continue OOB, wbat, posterior hip precautions to remain in place -Continue current pain regimen, encourage po pain control in preparation for hospital discharge -Continue daily dry dressing changes -Continue PT eval/treatment -Anticipate dc to home with [facility] either today or tomorrow Will discuss with Dr. Segundo Core Measures Venous Thromboembolism VTE Risk Factors Surgery No Mechanical VTE Prophylaxis d/t N/A MechProphylax Ordered No VTE Pharm Prophylaxis d/t NA PharmProphylax ordered
[2017-11-12] MEDS ORDERED: PERCOCET 5-3251 EACH PO (07:32)
[2017-11-12] MEDS ORDERED: ELIQUIS2.5 M1 PO (07:32)
[2017-11-12 14:06] VITALS: BP 100/64
== END 2017-11-12 16:50 | disposition home health service (06) | DRG 470 ==
LOC: SDA 00:54 → 2NB 00:54 → ENRESERV 09:46 → ENTRNSPT 11:11 → EDTRNSPTSTS 11:32 → EDTRNSPT 11:33 → CMPTRNSPT 11:45 → 2NB 11:48
PROVIDERS: Physician Assistant Surgical
PROC: 0SRB04A Replacement of Left Hip Joint with Ceramic on Polyethylene Synthetic Substitute, Uncemented, Open Approach (ICD-10-PCS; principal; 2017-11-10)
DX: M16.12 Unilateral primary osteoarthritis, left hip (principal); J44.9 Chronic obstructive pulmonary disease, unspecified; I48.91 Unspecified atrial fibrillation; M25.752 Osteophyte, left hip; K21.9 Gastro-esophageal reflux disease without esophagitis; I10 Essential (primary) hypertension
CPT/HCPCS: 2NBSP; 36415; 73501; 82436; 87086; 88304; 97110-GO; 97116-GO; 97161-GP; 97530-GO; J0131; J1100; J1885; J3370; J7040; J7060